=== PATIENT | male | born 1970 | race Caucasian/White ===

== ENCOUNTER 2017-07-13 18:51 | Emergency (ER) | payer MEDICAID, OTHER, SELFPAY ==
[2017-07-13 18:51] VITALS: BP 159/97; PULSE 82; RESP 16; TEMP 36.8; O2SAT 100; BMI 28.7
--- NOTE | 2017-07-13 19:23 | ED.VISSUMM ---
- ER Visit Summary Date of Service: 07/13/17 Chief Complaint: [] Bone spur History of Present Illness: The patient is a 46 M [] complaining of bone spur by his left great toe which became acutely inflamed today. He is requesting pain medication. He reports taking Tylenol at home without relief. No other complaints at this time. Denies any acute injury. Physical Examination: [] There is an obvious inflamed bony protuberance on the medial aspect of his right foot by his great toe which does not appear to be infected or reflecting any acute pathology. Remainder of exam is unremarkable. Test Results: [] None. Emergency Department Course and Treatment: [] Given 1 oxycodone tablet in the emergency department and a prescription for Naprosyn for home. He was encouraged to [facility]. Treatment Plan: [] Follow-up with primary care physician. Disposition: [] Discharge, stable. Impression: [] Foot pain This note was generated with [employer] dictation software. It may contain incorrect words, spelling, and punctuation that were not noted in review of the chart prior to signing ED Disposition - Plan for ED Patient: Chief Complaint: Lower Extremity Injury [facility] [[facility] Provider] -
--- NOTE | 2017-07-13 19:25 | ED.DEP ---
ED Disposition - Plan for ED Patient: Disposition: Home or Assisted Living Chief Complaint: Lower Extremity Injury Instructions: Foot Surgery: Bone Spurs Prescriptions: Naproxen 500 mg PO BID PRN PRN 10 Days #20 tab PRN Reason: Pain [facility] [[facility] Provider] -
[2017-07-13] MEDS: oxyCODONE 5 MG Tablet 10 MG PO (19:42)
[2017-07-13 19:43] VITALS: RESP 16
== END 2017-07-13 19:45 | disposition home or self-care (01) ==
PROVIDERS: Emergency Provider Emergency Medicine
DX: M77.32 Calcaneal spur, left foot (principal); F32.9 Major depressive disorder, single episode, unspecified; F41.9 Anxiety disorder, unspecified; K21.9 Gastro-esophageal reflux disease without esophagitis; Z72.0 Tobacco use
CPT/HCPCS: 99283

== ENCOUNTER 2018-06-30 14:26 | Emergency (ER) | payer MEDICAID, SELFPAY ==
[2018-06-30 14:27] VITALS: BP 155/95; PULSE 88; RESP 17; TEMP 36.7; O2SAT 97; BMI 29.5
--- NOTE | 2018-06-30 14:38 | RAD_ITS ---
STUDY: X-RAY - RIGHT ELBOW REASON FOR EXAM: Male, 47 years old. Fall onto elbow today, right elbow pain TECHNIQUE: 3 view(s) of the elbow. COMPARISON: None. FINDINGS: Normal visualized humerus, radius and ulna. Normal radiocapitellar and ulnotrochlear articulations. The soft tissue structures are unremarkable. RAD/Elbow min 3 Views IMPRESSION: Normal x-ray examination of the elbow. Electronically Signed: Sylvester Tee MD at 14:55 EST , Service support ,
--- NOTE | 2018-06-30 14:40 | ED.VISSUMM ---
- ER Visit Summary Date of Service: 06/30/18 Chief Complaint: Right elbow injury History of Present Illness: The patient is a 47 M cswq-dsnh-duhaatqj presents with isolated trauma to his left elbow from a mechanical fall 1 hour ago. He slipped on ice and landed directly on his right elbow. Denies any other injuries. He did not hit his head or lose consciousness. No back pain or any other complaints. Currently mild in severity Physical Examination: Mild tenderness on palpation right elbow posteriorly. Skin is intact. No swelling. No ecchymosis. No forearm or wrist tenderness. No shoulder tenderness. Normal distal neurovascular examination. No signs of head trauma. No cervical spine tenderness Test Results: Right elbow x-ray found to be negative Emergency Department Course and Treatment: Patient presented secondary to an elbow injury. X-rays are negative. Patient was recommended conservative treatment of this at home with liyt-fma-afkaeiz analgesics and ice. Disposition: Discharge Impression: 1. Right elbow contusion This note was generated with [employer] dictation software. It may contain incorrect words, spelling, and punctuation that were not noted in review of the chart prior to signing ED Disposition - Plan for ED Patient: Disposition: Home or Assisted Living Chief Complaint: Upper Extremity Injury Diagnosis: Contusion of right elbow Instructions: ED Contusion Elbow Referrals: [facility] [Primary Care Provider] -
[2018-06-30 15:36] VITALS: PULSE 79; RESP 14; O2SAT 98
--- OUTSIDE RECORDS SUMMARY | 2018-09-02 11:51 | XMS RPT_ITS ---
:1970 Author Organization [facility] Care Team Providers Name Role Phone [facility] [place] [facility] Unavailable Inderjit Fiore Attending [facility]available [facility] [place] [facility] Unavailable Ryan Cornell Attending Unavailable PROBLEMS PROBLEMS DATE TYPE CONDITION / CODE ATTENDING STATUS SOURCE 07/05/2018 Unknown S59.901A - Inderjit Fiore Active [facility] Unspecified Community injury of right Hospital elbow, initial Repository encounter / S59.901A(ICD-10) 07/13/2017 Unknown [place] - No Diagnosis Ryan Cornell Active [place] Code / [place](ICD-10) [facility] [place], [place] Repository PROCEDURES PROCEDURES No Procedure Records FoundRESULTS RESULTS EMERGENCY DEPARTMENT Observed: 06/30/2018 Status: F Source: [place] SUMMARY 4:16 PM [facility] REPOSITORY [facility] Medical Records Department [address] [place] [address] Emergency Department Summary 06/30/18 1440 MR#: [id number] Acct: [id number] Name: AMAN DELUCA Rep #: [id number] : 1970 47 From: Inderjit Fiore MD PCP: [facility], [place] Status: DEP ER - ER Visit Summary Date of Service: 06/30/18 Chief Complaint: Right elbow injury History of Present Illness: The patient is a 47 M epwo-qsat-rmwkwdly presents with isolated trauma to his left elbow from a mechanical fall 1 hour ago. He slipped on ice and landed directly on his right elbow. Denies any other injuries. He did not hit his head or lose consciousness. No back pain or any other complaints. Currently mild in severity Physical Examination: Mild tenderness on palpation right elbow posteriorly. Skin is intact. No swelling. No ecchymosis. No forearm or wrist tenderness. No shoulder tenderness. Normal distal neurovascular examination. No signs of head trauma. No cervical spine tenderness Test Results: Right elbow x-ray found to be negative Emergency Department Course and Treatment: Patient presented secondary to an elbow injury. X-rays are negative. Patient was recommended conservative treatment of this at home with xqeb-dew-yeaozee analgesics and ice. Disposition: Discharge Impression: 1. Right elbow contusion This note was generated with [employer] dictation software. It may contain incorrect words, spelling, and punctuation that were not noted in review of the chart prior to signing ED Disposition - Plan for ED Patient: Disposition: Home or Assisted Living Chief Complaint: Upper Extremity Injury Diagnosis: Contusion of right elbow Instructions: ED Contusion Elbow Referrals: [facility] [Primary Care Provider] - What to do if you have Problems For any increased pain, shortness of breath, bleeding, nausea or vomiting, chest pain, or any unexpected problems, contact your Primary Care Provider. Call [facility] ([phone]) or report to the closest Emergency Room. Call 911 if necessary. 06/30/18 1616 <Electronically signed by Inderjit Fiore MD> Date Inderjit Fiore MD Cosigner Signature (If Indicated): Date CC: [facility] ELBOW MIN 3 VIEWS Observed: 06/30/2018 Status: F Source: [place] 2:38 PM [facility] REPOSITORY [facility] Imaging Services [address] [place] [address] Elbow min 3 Views MR#: [id number] Acct: [id number] Name: AMAN DELUCA Rep #: [id number] : 1970 M 47 From: Sylvester Tee MD PCP: [place] [place] Status: PRE ER Study: Elbow min 3 Views Date of Exam: 06/30/18 Exam# [id number] Ordering Dr: Solis Wayne MD STUDY: X-RAY - RIGHT ELBOW REASON FOR EXAM: Male, 47 years old. Fall onto elbow today, right elbow pain TECHNIQUE: 3 view(s) of the elbow. COMPARISON: None. FINDINGS: Normal visualized humerus, radius and ulna. Normal radiocapitellar and ulnotrochlear articulations. The soft tissue structures are unremarkable. RAD/Elbow min 3 Views IMPRESSION: Normal x-ray examination of the elbow. Electronically Signed: Sylvester Tee MD at 14:55 EST , Service support , CC: [facility]; Mega Wayne MD [facility]: Signed EMERGENCY DEPARTMENT Observed: 07/13/2017 Status: F Source: [place] SUMMARY 10:35 PM [facility] REPOSITORY [facility] Medical Records Department [address] [place] [address] Emergency Department Summary 07/13/171922 MR#: [id number] Acct: [id number] Name: AMAN DELUCA Rep #: [id number] : 1970 46 From: Ryan Cornell DO PCP: [place] [place] Status: DEP ER - ER Visit Summary Date of Service: 07/13/17 Chief Complaint: [] Bone spur History of Present Illness: The patient is a 46 M [] complaining of bone spur by his left great toe which became acutely inflamed today. He is requesting pain medication. He reports taking Tylenol at home without relief. No other complaints at this time. Denies any acute injury. Physical Examination: [] There is an obvious inflamed bony protuberance on the medial aspect of his right foot by his great toe which does not appear to be infected or reflecting any acute pathology. Remainder of exam is unremarkable. Test Results: [] None. Emergency Department Course and Treatment: [] Given 1 oxycodone tablet in the emergency department and a prescription for Naprosyn for home. He was encouraged to follow-up with his [place] physician. Treatment Plan: [] Follow-up with primary care physician. Disposition: [] Discharge, stable. Impression: [] Foot pain This note was generated with [employer] dictation software. It may contain incorrect words, spelling, and punctuation that were not noted in review of the chart prior to signing ED Disposition - Plan for ED Patient: Chief Complaint: Lower Extremity Injury [facility]errals[place] [facility] [Primary Care Provider] - What to do if you have Problems For any increased pain, shortness of breath, bleeding, nausea or vomiting, chest pain, or any unexpected problems, contact your Primary Care Provider. Call [employer] [facility] ([phone]) or report to the closest Emergency Room. Call 911 if necessary. 07/13/172233 <Electronically signed by Ryan Cornell DO> Date Ryan Cornell DO Cosigner Signature (If Indicated): Date CC: [place] [facility] DISCHARGE INSTRUCTION Observed: 07/13/2017 Status: F Source: [place] 7:28 PM [facility] REPOSITORY [facility] Medical Records Department [address] [place] [address] Discharge Instruction 07/13/171924 MR#: [id number] Acct: [id number] Name: AMAN DELUCA Rep #: [id number] : 1970 46 From: Ryan Cornell DO PCP: [place] [place] Status: PRE ER ED Disposition - Plan for ED Patient: Disposition: Home or Assisted Living Chief Complaint: Lower Extremity Injury Instructions: Foot Surgery: Bone Spurs Prescriptions: Naproxen 500 mg PO BID PRN PRN 10 Days #20 tab PRN Reason: Pain Referrals: [facility] [Primary Care Provider] - What to do if you have Problems For any increased pain, shortness of breath, bleeding, nausea or vomiting, chest pain, or any unexpected problems, contact your Primary Care Provider. Call [facility] ([phone]) or report to the closest Emergency Room. Call 911 if necessary. 07/13/171927 <Electronically signed by Ryan Cornell DO> Date Ryan Cornell DO Cosigner Signature (If Indicated): Date CC: [place] [facility] ALLERGIES ALLERGIES DATE TYPE / CODE NAME / CODE REACTION SEVERITY SOURCE 06/30/2018 Drug Penicillins/ Swelling Unknown [facility] Allergy/399522409(S [id number](R [facility] NOMED CT) XNORM) Hospital Repository 06/30/2018 Drug meloxicam/F0 Itching Unknown [place] Allergy/702619065(S 71182940(RXN [facility] NOMED CT) ORM) Hospital Repository 06/30/2018 Drug latex/W06094 Other Unknown [place] Allergy/189747560(S 8921(RXNORM) Community NOMED CT) Hospital Repository 06/30/2018 Miscellaneous bee Other Unknown [place] Allergy/278550222(S [facility] NOMED CT) Hospital Repository 06/30/2018 Miscellaneous onion Other Unknown [place] Allergy/128281691(S [facility] NOMED CT) Hospital Repository 06/30/2018 Miscellaneous spider Hives Unknown [place] Allergy/447863449(S [facility] CT) Hospital Repository ENCOUNTERS ENCOUNTERS ADMIT/DISCHARGE ACCOUNT ADMITTING ENCOUNTER LOCATION SOURCE NUMBER CLASS 06/30/2018/ [id number] Emergency [place] [facility] ing:ED Repository 07/13/2017/ [id number] Emergency [place] [facility] ing:ED Repository PAYERS PAYERS ENCOUNTER GUARANTOR PAYER SUBSCRIBER SOURCE 06/30/2018 AMAN DELUCA428 Primary Insurance:[place] [facility] [place]ERLEYDOB: [place], [place] Number: [id number] [address]Okg: [phone] [id number] Repository [phone] (HP) Date:[id number] SERVICE [id number] [place], [place] [address]WV: [phone] x2003 06/30/2018 Secondary AMAN A [facility] [facility] [place] [id number] [id number] Repository Date:2018-06-30[address]ATTN[place] [address]RO: 06/30/2018 Tertiary NOT GIVENUNK [place] Insurance:SELF PAY [facility] Number: Effective Repository Date:2018-06-30 07/13/2017 Aman Joy [id number] Primary Aman A [place] Garcia [facility] Number: [id number] [address]Nhw: [phone] [id number] Repository [phone] (HP) Date:2017-07-13[address]ATTN: [place] [address]PB: 07/13/2017 Secondary Aman A [facility] Insurance:[facility] JonDOB: [facility] Number: [id number] [id number] Repository Date:6156-06-16RIO SERVICE [id number] [place], [place] [address]CE: [phone] x2003 07/13/2017 Tertiary NOT GIVENUNK [place] Insurance:SELF PAY [facility] Number: Effective Repository Date:2017-07-13
== END 2018-06-30 15:37 | disposition home or self-care (01) ==
PROVIDERS: Emergency Provider Emergency Medicine
DX: S50.01XA Contusion of right elbow, initial encounter (principal); W00.0XXA Fall on same level due to ice and snow, initial encounter; Y93.9 Activity, unspecified; Y92.9 Unspecified place or not applicable; F32.9 Major depressive disorder, single episode, unspecified; Z72.0 Tobacco use
CPT/HCPCS: 73080; 99282

== ENCOUNTER 2018-12-08 09:52 | Emergency (ER) | payer MEDICAID, SELFPAY ==
[2018-12-08 09:53] VITALS: BP 136/88; PULSE 91; RESP 16; TEMP 36.2; O2SAT 96; BMI 28.1
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
[2018-12-08] MEDS: HYDROcodone Bitartrate/Apap 5/325 Tablet PO (10:26)
--- NOTE | 2018-12-08 11:12 | ED.RN ---
DISCHARGE INSTRUCTIONS GIVEN TO AND REVIEWED WITH PATIENT, PATIENT DENIES QUESTIONS OR CONCERNS AND VOICES UNDERSTANDING OF DISCHARGE INSTRUCTIONS. PT AMBULATES OUT OF ROOM WITHOUT DIFFICULTY.
== END 2018-12-08 11:12 | disposition home or self-care (01) ==
LOC: ED 10:24
PROVIDERS: Emergency Provider Emergency Medicine
DX: S20.221A Contusion of right back wall of thorax, initial encounter (principal); W22.8XXA Striking against or struck by other objects, initial encounter; Y93.89 Activity, other specified; Y92.9 Unspecified place or not applicable; I10 Essential (primary) hypertension; Z79.899 Other long term (current) drug therapy; Z72.0 Tobacco use
CPT/HCPCS: 71101; 99283

== ENCOUNTER 2019-01-16 16:48 | Emergency (ER) | payer MEDICAID, OTHER, SELFPAY ==
[2019-01-16 16:49] VITALS: BP 149/96; PULSE 84; RESP 16; TEMP 36.3; O2SAT 97; BMI 28.1
--- NOTE | 2019-01-16 17:18 | RAD_ITS ---
STUDY: X-RAY - RIGHT WRIST REASON FOR EXAM: Male, 48 years old. Pain. Fall. TECHNIQUE: 3 view(s) of the wrist were obtained. COMPARISON: None. FINDINGS: Normal visualized distal radius and ulna. Normal radiocarpal articulation. Normal distal radioulnar articulation. Normal carpal bones. Normal carpal articulations. Normal carpometacarpal articulation of the thumb. Normal second through fifth carpometacarpal articulations. Normal visualized metacarpal bones. The soft tissue structures are unremarkable. There is no demonstrated acute fracture. RAD/Wrist min 3 Views IMPRESSION: Normal x-ray examination of the wrist. Electronically Signed: Gregory Thomas MD at 17:40 EDT , Service support ,
--- NOTE | 2019-01-16 17:18 | ED.VISSUMM ---
- ER Visit Summary Date of Service: 01/16/19 Chief Complaint: Fall with right elbow pressure laceration History of Present Illness: The patient is a 48 M physical was picking up scrap metal weeks. Fell backwards in the room. Injuring his right elbow and right wrist. He is left-hand dominant. Tetanus up-to-date within the last few months. He denies any injuries. Physical Examination: Well-appearing middle-aged male. No acute distress. Vital signs stable afebrile. HEENT exam unremarkable. Neck nontender. Lungs clear to auscultation bilaterally. Heart regular rate and rhythm no murmur. Chest were nontender. Abdomen soft nontender. Cervical, thoracic lumbar spine and back nontender. Patient moving all 4 extremities. Neurovascular intact. Left upper both lower extremities are unremarkable. He has a abrasion to his right elbow that does not separate nor need to be sewn. He also has some mild right elbow and right wrist tenderness. There is no deformity. He has discomfort but is able to do range of motion. 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 Normal radial pulse and sensation. Right hand is neurovascular intact. Neurologic exam normal. GCS 15. Test Results: Right wrist x-ray x3 shows no acute abnormality. Right elbow x-ray x3 shows no acute abnormality. Both films are read both by the radiologist and myself. Emergency Department Course and Treatment: Right elbow wound will be cleaned and dressed. Does not need laceration repair. Treatment Plan: Keep the wound clean. Watch for any signs of infection. Ice to his elbow and wrist. Motrin for pain and swelling. Disposition: dc Impression: Fall Superficial right elbow laceration no repair Right elbow contusion Right wrist sprain This note was generated with [employer] dictation software. It may contain incorrect words, spelling, and punctuation that were not noted in review of the chart prior to signing ED Disposition - Plan for ED Patient: [facility] [facility] [Primary Care Provider] -
--- NOTE | 2019-01-16 17:25 | RAD_ITS ---
STUDY: X-RAY - RIGHT ELBOW REASON FOR EXAM: Male, 48 years old. Pain. Fall. TECHNIQUE: 3 view(s) of the elbow. COMPARISON: June 30, 2018 FINDINGS: Normal visualized humerus, radius and ulna. Normal radiocapitellar and ulnotrochlear articulations. The soft tissue structures are unremarkable. There is no demonstrated fracture. RAD/Elbow min 3 Views IMPRESSION: Normal x-ray examination of the elbow. Electronically Signed: Gregory Thomas MD at 17:41 EDT , Service support ,
[2019-01-16] MEDS: Ibuprofen 600 MG Tablet PO (17:49)
--- NOTE | 2019-01-16 17:50 | ED.DEP ---
ED Disposition - Plan for ED Patient: Disposition: Home or Assisted Living Instructions: LACERATION, All, CONTUSION, Elbow, Wrist Sprain [facility]errals[place] [facility] [Primary Care Provider] - 1 Week if not improving Additional Instructions: Wound clean and watch for any signs of infection. Apply antibiotic ointment daily. Tylenol and/or Motrin for pain. Ice all sore areas particularly her elbow and wrist. This should particularly get better if not improving follow-up with your doctors.
== END 2019-01-16 18:00 | disposition home or self-care (01) ==
PROVIDERS: Emergency Provider Emergency Medicine
DX: S51.011A Laceration without foreign body of right elbow, initial encounter (principal); S50.01XA Contusion of right elbow, initial encounter; S63.501A Unspecified sprain of right wrist, initial encounter; W19.XXXA Unspecified fall, initial encounter; Y93.89 Activity, other specified; I10 Essential (primary) hypertension; F32.9 Major depressive disorder, single episode, unspecified; F41.9 Anxiety disorder, unspecified; F43.10 Post-traumatic stress disorder, unspecified; Z79.899 Other long term (current) drug therapy; Z72.0 Tobacco use
CPT/HCPCS: 73080; 73110; 99282

== ENCOUNTER 2019-07-12 11:52 | Emergency (ER) | payer MEDICAID, SELFPAY ==
[2019-07-12 11:53] VITALS: BP 170/95; PULSE 70; RESP 18; TEMP 36.3; O2SAT 99; BMI 29.2
--- NOTE | 2019-07-12 12:25 | EKG12_ITS ---
Test Reason : Blood Pressure : / mmHG Vent. Rate : 068 BPM Atrial Rate : 068 BPM P-R Int : 162 ms QRS Dur : 082 ms QT Int : 364 ms P-R-T Axes : 061 073 045 degrees QTc Int : 387 ms Normal sinus rhythm Normal ECG Confirmed by FABI SINGH, WADE ([id number]), image editor GILMA ROACH ([id number]) on 07/15/2019 8:25:00 AM Referred By: JODIE Confirmed By:WADE DUNLAP MD
--- NOTE | 2019-07-12 12:25 | RAD_ITS ---
STUDY: X-RAY CHEST REASON FOR EXAM: Male, 48 years old. Chest pain since this morning TECHNIQUE: Single AP portable view of the chest. COMPARISON: 01/03/2011. FINDINGS: The lungs are clear and expanded. There is no demonstrated pleural abnormality. Normal size heart. Normal mediastinum and ben. Normal visualized pulmonary arteries. Normal visualized aortic arch and descending thoracic aorta. Normal visualized thoracic spine. Normal visualized ribs, clavicles, and shoulders. There is no demonstrated abnormality of the visualized soft tissue structures of the upper abdomen. RAD/Chest 1 View (Portable) IMPRESSION: Normal x-ray examination of the chest. Electronically Signed: Mahesh Huffman MD at 13:06 EST Tel , Service support ,
--- NOTE | 2019-07-12 12:26 | ED.DCSUM_ITS ---
History of Present Illness Chief Complaint: Chest Pain Informant: Patient Onset: Today Maximum Severity: Mild Narrative: Patient reports he woke today with epigastric gastric burning discomfort similar to his reflux he is on ompyrazole, he has history of reflux,, symptoms seem to persist to a degree although he improved and he came in for evaluation he has no history of [place] PE DVT he has had similar symptoms like this in the past, his indicates is able to exert himself without any chest pain. He has a history of hypertension no diabetes he does smoke he is followed through the [facility] reports reflux diagnosed with EGD through the [facility] bowel bladder habits been normal no fever no cough he is resting comfortably sitting he is improved without therapy Past Medical History - Allergies and Home Meds Allergies/Adverse Reactions: Allergies latex Allergy (Verified 01/16/19 16:52) Other meloxicam Allergy (Verified 01/16/19 16:52) Itching Penicillins Allergy (Verified 01/16/19 16:52) Swelling bee Allergy (Uncoded 01/16/19 16:52) Other onion Allergy (Uncoded 01/16/19 16:52) Other spider Allergy (Uncoded 01/16/19 16:52) Hives Primary Care Physician[place] Care Provider] - Past Medical History: - Smoking Status: Current every day smoker Review of Systems ROS: - As above General: Denies: Chills, Fever, Sweats Eyes: Denies: Visual changes - bilaterally, Diplopia ENT: Denies: Rhinorrhea, Sore throat Cardiovascular: Reports: Chest pain. Denies: Palpitations Respiratory: Denies: Dyspnea, Cough, Dyspnea on exertion Gastrointestinal: Denies: Abdominal pain, Nausea, Vomiting, Diarrhea, Melena, Hematochezia Genitourinary: Denies: Dysuria, Hematuria, Frequency Musculoskeletal: Denies: Back pain, Extremity Pain Skin: Denies: Rash, Wounds Neurological: Denies: Headache, Weakness, Numbness Physical Exam Vital Signs/Narrative: Vital Signs Temp Pulse Resp BP Pulse Ox 07/12/19 11:53 97.4 F L 70 18 170/95 H 99 General: Well nourished, Well developed, No Acute Distress Head: Normocephalic, Atraumatic Eyes: Perrl, EOMI ENT: Moist mucous membranes, No rhinorrhea Neck: Supple, Nontender Cardiovascular: Regular rate, Regular rhythm, No murmurs Respiratory: No distress, CTA bilaterally, Chest nontender Abdomen: Soft, Nontender, Nondistended, Normal bowel sounds Back: Nontender, Normal Inspection Extremities: Nontender, No edema Skin: Normal color, No rash Neurological: Alert, Oriented x3, Cranial nerves II-XII grossly intact, Normal Strength, Normal Sensation Psychological: Normal affect, Normal Mood Diagnostic/Tx/Re-eval - Medical Decision Making The patient's differential is extensive he assures me he is had this type of pressure and discomfort and epigastric burning in the past he is never been told he has an [place] PE DVT he has reflux this is very similar to that but given all the above screening labs are obtained EKG Patient's EKG shows a sinus rhythm no acute injury pattern, intervals appear within normal range, his labs x-rays are all unremarkable on reevaluation is resting comfortably he feels back to baseline, we discussed the differential we discussed keeping him in the emergency department for repeat troponin EKG and to include admitting him to the hospital for further management he declined all the above saying he felt fine he wanted to go home he understand the differential and the concept of an acute [place] and sudden but he did not wish to be admitted preferring outpatient management he has appointment see his physicians early next week and return for change in symptoms Home stable declined admission Impression final is burning epigastric pain resolved history of GERD ED Disposition - Plan for ED Patient: Instructions: CHEST PAIN, Uncertain Cause [facility]errals[place] [facility] [Primary Care Provider] -
[2019-07-12 12:43] VITALS: O2SAT 96
[2019-07-12 12:44] LABS: Absolute Neutrophil Count 3.2 X10^3/uL (2.0-7.7); Basophil# 0.06 X10^3/uL; Basophil% 0.8 % (0-1); Eosinophils% 2.5 % (0-5); Hematocrit 43.8 % (40-54); Hemoglobin 15.3 g/dL (13.0-16.5); Lymphocyte % 49.6 % (19-41); Mean Corp Hgb Conc 34.9 g/dL (32-36); Mean Corpuscular Hgb 29.3 pg (27.0-32.0); Mean Corpuscular Volume 83.7 fL (80-94); Mean Platelet Vol. 8.8 fl (6.2-12.0); Monocyte# 0.49 X10^3/uL; Monocyte% 6.2 % (0-10); NRBC Flagged by Analyzer 0 % (0-5); Neutrophil # 3.18 X10^3/uL (2.7-7.7); Neutrophil % 40.5 % (47-70); Platelet Count 246 K/mm3 (150-450); RBC Distribution Width CV 13.1 % (11.6-14.6); RBC Distribution Width SD 40.2 fl (35.1-43.9); Red Blood Count 5.23 M/mm3 (4.6-6.2); White Blood Count 7.9 K/mm3 (4.4-11.0)
[2019-07-12] MEDS: Mag Hydrox/Al Hydrox/Simeth 30 ML UDC PO (12:55)
[2019-07-12 12:56] VITALS: BP 140/99; PULSE 66; RESP 18; O2SAT 98
[2019-07-12 12:58] LABS: Anion Gap 5 (5-15); BUN 11 mg/dL (7-18); BUN/Creat Ratio 12.1 RATIO (10-20); Calcium,Total 8.9 mg/dL (8.5-10.1); Chloride 110 mmol/L (98-107); Creatinine, Serum 0.91 mg/dL (0.70-1.30); EST Glomerular Filtration Rate 94 mL/min (>60); Est Glom Filt Rate - Afr Amer 114 mL/min (>60); Estimated Creatinine Clearance 91.81 ml/min; Glucose 101 mg/dL (74-106); Potassium 3.9 mmol/L (3.5-5.1); Sodium Level 138 mmol/L (136-145)
--- NOTE | 2019-07-12 12:59 | ED.RN ---
pt did not tolerate lidocaine in GI cocktail. Water given to help flush lidocaine.
[2019-07-12 13:24] LABS: BNP,B-Type NATRIURETIC PEPTIDE 4.9 pg/mL (0-100)
[2019-07-12 14:00] VITALS: BP 160/91; PULSE 67; RESP 16; O2SAT 98
[2019-07-12 14:16] VITALS: BP 160/91; PULSE 66; RESP 16; O2SAT 99
== END 2019-07-12 14:17 | disposition home or self-care (01) ==
LOC: ED 12:49
PROVIDERS: Emergency Provider Emergency Medicine
DX: R10.13 Epigastric pain (principal); K21.9 Gastro-esophageal reflux disease without esophagitis; I10 Essential (primary) hypertension; F17.200 Nicotine dependence, unspecified, uncomplicated
CPT/HCPCS: 71045; 80048; 83880; 84484; 85025; 93005; 99285; A4216

== ENCOUNTER 2020-02-29 12:06 | Emergency (ER) | payer MEDICAID, SELFPAY ==
[2020-02-29 12:08] VITALS: BP 137/94; PULSE 82; RESP 16; TEMP 36.5; O2SAT 99; BMI 26.6
--- NOTE | 2020-02-29 12:22 | ED.VIS.GEN ---
History of Present Illness <Inderjit Atkins - Last Filed: 02/29/20 12:41> Informant: Patient Narrative: Patient presents with dental pain. He has his right lower back molar extracted on 02/25. He woke up today with increased pain and facial swelling. Denies fevers, chills, nausea, vomiting, difficulty breathing or swallowing. <Telma Carranza - Last Filed: 02/29/20 13:11> Chief Complaint: Dental Past Medical History <Inderjit Atkins - Last Filed: 02/29/20 12:41> Past Medical History: - - PTSD Smoking Status: Current every day smoker <Telma Carranza - Last Filed: 02/29/20 13:11> - Allergies and Home Meds Allergies/Adverse Reactions: Allergies latex Allergy (Verified 02/29/20 12:07) Other meloxicam Allergy (Verified 02/29/20 12:07) Itching Penicillins Allergy (Verified 02/29/20 12:07) Swelling bee Allergy (Uncoded 02/29/20 12:07) Other onion Allergy (Uncoded 02/29/20 12:07) Other spider Allergy (Uncoded 02/29/20 12:07) Hives Primary Care Physician: [place] [Primary Care [place]] - Review of Systems General: Denies: Chills, Fever, Sweats Eyes: Denies: Visual changes - bilaterally, Diplopia ENT: Reports: - - dental pain. Denies: Rhinorrhea, Sore throat Cardiovascular: Denies: Chest pain, Palpitations Respiratory: Denies: Dyspnea, Cough, Dyspnea on exertion Gastrointestinal: Denies: Abdominal pain, Nausea, Vomiting, Diarrhea, Melena, Hematochezia Musculoskeletal: Denies: Back pain, Extremity Pain Skin: Denies: Rash, Wounds Neurological: Denies: Headache, Weakness, Numbness <Telma Carranza - Last Filed: 02/29/20 13:11> Physical Exam Vital Signs/Narrative: Vital Signs Temp Pulse Resp BP Pulse Ox 02/29/20 12:08 97.7 F L 82 16 137/94 H 99 <Inderjit Atkins - Last Filed: 02/29/20 12:41> Vital Signs/Narrative: Vital Signs Temp Pulse Resp BP Pulse Ox 02/29/20 12:08 97.7 F L 82 16 137/94 H 99 General: Well nourished, Well developed, No Acute Distress Head: Normocephalic, Atraumatic Eyes: Perrl, EOMI ENT: Moist mucous membranes, - - Skin appears normal, no swelling, tender over area of tooth extraction, no other dental injury or loose dentition, no palpable abscess, no trismus or tongue elevation, sublingual space is soft, airway intact, neck has good range of motion. Neck: Supple, Nontender Cardiovascular: Regular rate, Regular rhythm, No murmurs Respiratory: No distress, CTA bilaterally, Chest nontender Abdomen: Soft, Nontender, Nondistended, Normal bowel sounds Back: Nontender, Normal Inspection Extremities: Nontender, No edema Skin: Normal color, No rash Neurological: Alert, Oriented x3, Cranial nerves II-XII grossly intact, Normal Strength, Normal Sensation Psychological: Normal affect, Normal Mood <Telma Carranza - Last Filed: 02/29/20 13:11> Diagnostic/Tx/Re-eval - Medical Decision Making Patient was seen in conjunction with the nurse practitioner. It does appear as if he has dry socket. It was irrigated and dry socket paste was used. There is no evidence of Adalberto angina or pain in the submental area. Patient will be discharged. <Inderjit Atkins - Last Filed: 02/29/20 12:41> - Medical Decision Making Presented with increased dental pain after dental extraction several days ago. Exam consistent with dry socket. No palpable abscess. The area was cleared with sterile saline and dry socket paste applied. He will be given amoxicillin and was advised to follow up with his dentist. He states he will take ibuprofen at home for pain. He was discharged home in stable condition. <Telma Carranza - Last Filed: 02/29/20 13:11> ED Disposition <Inderjit Atkins - Last Filed: 02/29/20 12:41> <Telma Carranza - Last Filed: 02/29/20 13:11> - Plan for ED Patient: Disposition: Home or Assisted Living Diagnosis: Dry tooth socket Prescriptions: Clindamycin [Cleocin] 300 mg PO 4X/DAY #80 cap Transmission Status: Received by [facility]errals[facility] [Primary Care Provider] -
[2020-02-29] MEDS: HYDROcodone Bitartrate/Apap 5/325 Tablet PO (12:45)
== END 2020-02-29 12:48 | disposition home or self-care (01) ==
PROVIDERS: Emergency Provider Physician Assistant
DX: M27.3 Alveolitis of jaws (principal); F17.200 Nicotine dependence, unspecified, uncomplicated
CPT/HCPCS: 99283

== ENCOUNTER 2020-07-12 08:08 | Emergency (ER) | payer OTHER, MEDICAID, SELFPAY ==
[2020-07-12 08:08] VITALS: BP 159/91; PULSE 103; RESP 22; TEMP 36.6; O2SAT 98; BMI 27.3
--- NOTE | 2020-07-12 08:26 | EKG12_ITS ---
Test Reason : SOB Blood Pressure : / mmHG Vent. Rate : 080 BPM Atrial Rate : 080 BPM P-R Int : 164 ms QRS Dur : 080 ms QT Int : 328 ms P-R-T Axes : 061 077 043 degrees QTc Int : 378 ms Normal sinus rhythm with sinus arrhythmia Normal ECG Confirmed by CYRIL SINGH, ALICJA ([id number]), field map editor ELIA MORA ([id number]) on 07/21/2020 9:02:22 AM Referred By: STARLA Confirmed By:ALICJA NAM MD
--- NOTE | 2020-07-12 08:27 | ED.VISSUMM ---
- ER Visit Summary Date of Service: 07/12/20 Chief Complaint: Shortness of breath History of Present Illness: The patient is a 49 M presenting with shortness of breath. 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 He denies chest pain or chest pressure. He used his inhaler and started to have improvement of his symptoms. He denies recent fever or cough. He states he has his temperature checked daily. Denies Covid symptoms. He states he is now feeling improved after using his inhaler. Denies other complaints. Physical Examination: Vitals are stable. Patient is afebrile. Alert no acute distress. HEENT exam is unremarkable. Neck is supple. Lungs are clear and equal bilaterally. Heart is regular rate and rhythm. Abdomen is soft nontender nondistended. Extremities are unremarkable. Skin is warm and dry. Remainder of exam is unremarkable. Emergency Department Course and Treatment: Patient was given albuterol, Atrovent aerosol. EKG is normal sinus rhythm rate of 80 with no acute ischemic changes. CBC, chemistries unremarkable. Troponin is negative. Chest x-ray read by myself and radiology shows no acute process. On reevaluation after breathing treatment patient is feeling improved. He states he had no chest pain during this episode. He declines delta troponin. He is advised to return to the ED for worsening complaints. Advised to follow-up with primary care physician. Disposition: Discharge home Impression: Dyspnea, resolved This note was generated with [employer] dictation software. It may contain incorrect words, spelling, and punctuation that were not noted in review of the chart prior to signing ED Disposition - Plan for ED Patient: Instructions: ED Asthma, Acute (Adult) Referrals: [facility],[place] [Primary Care Provider] -
[2020-07-12 08:40] LABS: Absolute Neutrophil Count 4.7 X10^3/uL (2.0-7.7); Basophil# 0.03 X10^3/uL; Basophil% 0.4 % (0-1); Eosinophil# 0.11 X10^3/uL; Eosinophils% 1.4 % (0-5); Hemoglobin 14.7 g/dL (13.0-16.5); Lymphocyte % 31.8 % (19-41); Mean Corpuscular Hgb 29.9 pg (27.0-32.0); Mean Corpuscular Volume 85.4 fL (80-94); Mean Platelet Vol. 8.7 fl (6.2-12.0); Monocyte# 0.51 X10^3/uL; Monocyte% 6.5 % (0-10); NRBC Flagged by Analyzer 0 % (0-5); Neutrophil % 59.6 % (47-70); Platelet Count 231 K/mm3 (150-450); RBC Distribution Width SD 40.3 fl (35.1-43.9); Red Blood Count 4.92 M/mm3 (4.6-6.2); White Blood Count 7.9 K/mm3 (4.4-11.0)
[2020-07-12] MEDS: Ipratropium/Albuterol Sulfate 3 ML AMPUL.NEB INHALATION (08:41)
[2020-07-12 08:42] VITALS: PULSE 83; RESP 18
--- NOTE | 2020-07-12 08:45 | RAD_ITS ---
STUDY: X-RAY CHEST REASON FOR EXAM: Male, 49 years old. 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 HX OF ASTHMA TECHNIQUE: Single AP portable view of the chest. COMPARISON: Comparison is made with prior study dated 07/12/2019. FINDINGS: EKG electrodes are seen. The lungs are clear and expanded. There is no demonstrated pleural abnormality. Normal size heart. Normal mediastinum and ben. Normal visualized pulmonary arteries. Normal visualized aortic arch and descending thoracic aorta. Normal visualized thoracic spine. Normal visualized ribs, clavicles, and shoulders. There is no demonstrated abnormality of the visualized soft tissue structures of the upper abdomen. RAD/Chest 1 View (Portable) IMPRESSION: Normal x-ray examination of the chest. Electronically Signed: Yaakov Pal MD at 9:01 EST , Service support ,
[2020-07-12 08:58] LABS: Anion Gap 7 (5-15); BUN 19 mg/dL (7-18); BUN/Creat Ratio 19.2 RATIO (10-20); Calcium,Total 8.9 mg/dL (8.5-10.1); Chloride 106 mmol/L (98-107); Creatinine, Serum 0.99 mg/dL (0.70-1.30); EST Glomerular Filtration Rate 85 mL/min (>60); Est Glom Filt Rate - Afr Amer 103 mL/min (>60); Estimated Creatinine Clearance 86.36 ml/min; Glucose 109 mg/dL (74-106); Potassium 3.9 mmol/L (3.5-5.1); Sodium Level 137 mmol/L (136-145)
[2020-07-12 09:23] VITALS: BP 148/90; PULSE 80; RESP 18; O2SAT 96
--- NOTE | 2020-07-12 09:24 | ED.DEP ---
ED Disposition - Plan for ED Patient: Instructions: ED Asthma, Acute (Adult) [facility]errals[place] [facility] [Primary Care [place]] -
== END 2020-07-12 09:33 | disposition home or self-care (01) ==
LOC: ED 09:17
PROVIDERS: Emergency Provider Emergency Medicine
DX: R06.00 Dyspnea, unspecified (principal); F17.200 Nicotine dependence, unspecified, uncomplicated; K21.9 Gastro-esophageal reflux disease without esophagitis
CPT/HCPCS: 71045; 80048; 84484; 85025; 93005; 94640; 99285

== ENCOUNTER 2020-07-29 08:21 | Emergency (ER) | payer OTHER, MEDICAID, SELFPAY ==
[2020-07-29 08:21] VITALS: BP 164/95; PULSE 89; RESP 16; TEMP 36.6; O2SAT 98; BMI 27.4
--- NOTE | 2020-07-29 08:37 | CT_ITS ---
STUDY: CT ABDOMEN AND PELVIS WITH CONTRAST REASON FOR EXAM: Male, 49 years old. ABD PAINX 4 DAYS, HX HERNIA RADIATION DOSAGE (If Supplied By Facility): CTDIvol = ( 8.17 ) mGy, DLP = ( 683.76 ) mGycm TECHNIQUE: Transaxial images were obtained from the dome of the diaphragm to the symphysis pubis with oral contrast. Oral and amp; IV Gastrografin and amp; 100mL Isovue-300 was administered. Sagittal and coronal images were reconstructed. Individualized dose optimization techniques were used for this CT. COMPARISON: Comparison is made with prior study dated 08/16/2016. FINDINGS: The visualized lung bases are unremarkable. The visualized portions of the heart are within normal limits. Normal liver. There are surgical clips in the gallbladder fossa consistent with a prior cholecystectomy. Normal spleen. Normal pancreas. There is a small, circumscribed, smooth, low attenuation left adrenal mass, consistent with an adrenal adenoma. It measures 1.6 cm. Normal right adrenal gland. Normal right kidney. Normal left kidney. There is a small hiatal hernia. Normal small intestine. There are scattered colonic diverticula consistent with diverticulosis. The appendix is visualized and appears normal. There is scattered atherosclerotic calcification of the abdominal aorta, without a demonstrated aneurysm. Normal inferior vena cava. Normal retroperitoneum. Distended urinary bladder. There is enlargement of the prostate gland. It causes indentation at the bladder base. There is a small umbilical hernia containing fat. There are mild degenerative changes of the visualized lumbar spine. CT/Abdomen/Pelvis WITH Contrast IMPRESSION: Distended urinary bladder. Prostatic enlargement with indentation at the bladder base. Scattered sigmoid diverticulosis. Electronically Signed: Yaakov Pal MD at 11:03 EST , Service support ,
--- NOTE | 2020-07-29 08:38 | ED.DCSUM_ITS ---
- ER Visit Summary Date of Service: 07/29/20 Chief Complaint: Abdominal pain History of Present Illness: The patient is a 49 M who presents with abdominal pain that has been getting worse over the past 4 days. Patient states the pain is over the upper abdomen in the area of his prior hernia. Patient states the pain is sharp. Patient states the pain is been constant. Patient states the pain is worse with certain movements. Patient states the pain is better when he lays flat. Patient denies any nausea or vomiting. Patient denies any diarrhea, melena, or hematochezia. Patient denies any dysuria or hematuria. Patient denies any fevers or chills. Patient denies any radiation to his back. Physical Examination: Vital signs are stable except for a slightly elevated blood pressure of 164/95. Patient is afebrile. Patient is in no acute distress. Oral mucosa is pink and moist. Neck is supple. Trachea is midline. There is no JVD. Heart was regular rate and rhythm. Lungs are clear and equal bilaterally. Abdomen is soft. Bowel sounds are normal. There is tenderness over the upper abdomen. There is no rebound or guarding. I did not palpate a hernia or fascial defect. There is no erythema or warmth. Cranial nerves II through XII are intact. There are no focal motor or sensory deficits. Extremities are intact. There is no calf tenderness or edema. Test Results: CBC and comprehensive metabolic profile were obtained and were within normal limits. Lipase was normal. CT scan of the abdomen pelvis was obtained. There is a distended bladder and prostate enlargement. There is scattered diverticulosis. There is no acute intra-abdominal pathology. There is no obstruction. This was interpreted by the radiologist and reviewed by myself. Emergency Department Course and Treatment: Patient was given IV fluids and morphine here. Patient became nauseated after getting the morphine. Patient was given Zofran and Benadryl. Patient was still having some nausea. Patient has not vomited. Patient was given prescriptions for Zofran and Broadway. Patient was instructed to follow-up with his primary care physician in 5 to 7 days. Patient understood and was agreeable with the plan. All questions were answered. Disposition: Discharge home Impression: 1. Abdominal pain This note was generated with [employer] dictation software. It may contain incorrect words, spelling, and punctuation that were not noted in review of the chart prior to signing ED Disposition - Plan for ED Patient: Disposition: Home or Assisted Living Diagnosis: Upper abdominal pain of unknown etiology Instructions: ED Unknown Causes of Abdominal ... Prescriptions: Hydrocodone Bitart/Apap 5-325 [Broadway 5MG-325MG] 1 tab PO Q6H PRN PRN 3 Days #10 tab PRN Reason: Pain Prescription Printed Ondansetron [Zofran Odt] 4 mg PO Q8H PRN PRN #10 tab PRN Reason: Nausea Prescription Printed [facility]errals[facility] [Primary [facility]] - 3-5 Days
[2020-07-29] MEDS: 0.9% Normal Saline 1,000 ML 1000 ML IV (08:48)
[2020-07-29 08:53] LABS: Absolute Lymphocyte Count 2.46 X10^3/uL (0.83-4.51); Absolute Neutrophil Count 2.7 X10^3/uL (2.0-7.7); Basophil# 0.02 X10^3/uL; Basophil% 0.4 % (0-1); Eosinophil# 0.12 X10^3/uL; Eosinophils% 2.1 % (0-5); Hematocrit 43.2 % (40-54); Lymphocyte # 2.46 X10^3/ul (4.0); Lymphocyte % 43.2 % (19-41); Mean Corp Hgb Conc 34.7 g/dL (32-36); Mean Corpuscular Hgb 29.3 pg (27.0-32.0); Mean Corpuscular Volume 84.4 fL (80-94); Mean Platelet Vol. 8.6 fl (6.2-12.0); Monocyte# 0.33 X10^3/uL; Monocyte% 5.8 % (0-10); NRBC Flagged by Analyzer 0 % (0-5); Neutrophil # 2.74 X10^3/uL (2.7-7.7); Neutrophil % 48.1 % (47-70); Platelet Count 245 K/mm3 (150-450); RBC Distribution Width CV 13.2 % (11.6-14.6); RBC Distribution Width SD 40.6 fl (35.1-43.9); Red Blood Count 5.12 M/mm3 (4.6-6.2); White Blood Count 5.7 K/mm3 (4.4-11.0)
[2020-07-29 09:10] LABS: ALB/GLOB Ratio 1.1 RATIO (0.9-2.4); AST(SGOT) 19 U/L (15-37); Alanine Aminotransfer ALT/SGPT 26 U/L (16-61); Albumin, Serum 3.7 g/dL (3.2-5.0); Alkaline Phosphatase 83 U/L (45-117); Anion Gap 5 (5-15); BUN 12 mg/dL (7-18); BUN/Creat Ratio 12.3 RATIO (10-20); Calcium,Total 8.8 mg/dL (8.5-10.1); Chloride 105 mmol/L (98-107); Creatinine, Serum 0.97 mg/dL (0.70-1.30); EST Glomerular Filtration Rate 86 mL/min (>60); Est Glom Filt Rate - Afr Amer 105 mL/min (>60); Estimated Creatinine Clearance 82.22 ml/min; Globulin 3.5 g/dL (2.2-4.2); Glucose 116 mg/dL (74-106); Lipase 77 U/L (73-393); Protein, Total 7.2 g/dL (6.4-8.2); Sodium Level 136 mmol/L (136-145)
[2020-07-29] MEDS: Morphine 4 MG/ML Syringe IV (09:46)
[2020-07-29 10:21] VITALS: PULSE 86; RESP 22; O2SAT 100
[2020-07-29] MEDS: Ondansetron 4 MG/2 ML Vial IV (10:22)
[2020-07-29] MEDS: DiphenhydrAMINE 50 MG/ML Syringe 25 MG IV (10:29)
[2020-07-29 11:27] VITALS: BP 149/86; PULSE 88; RESP 18; O2SAT 100
== END 2020-07-29 11:29 | disposition home or self-care (01) ==
PROVIDERS: Emergency Provider Emergency Medicine
DX: R10.10 Upper abdominal pain, unspecified (principal); F17.200 Nicotine dependence, unspecified, uncomplicated; K21.9 Gastro-esophageal reflux disease without esophagitis
CPT/HCPCS: 74177; 80053; 83690; 85025; 96374; 96375; 99283; J7030; Q9967; A4216; J2405

== ENCOUNTER 2020-08-26 09:48 | Emergency (ER) | payer OTHER, MEDICAID, SELFPAY ==
[2020-08-26 09:49] VITALS: BP 159/107; PULSE 82; RESP 16; TEMP 36.2; O2SAT 96; BMI 28.1
--- NOTE | 2020-08-26 10:07 | ED.VIS.GEN ---
History of Present Illness Chief Complaint: Abd Pain Informant: Patient Narrative: 50-year-old male presenting with abdominal hernia which is reducible. This is a chronic issue. Patient states that he was seen by his physician at the [place] and referred to either a GI doctor or a surgeon. He states he does not know which. Patient states that he is having pain where his hernia is located. He does not have nausea, vomiting, fever, chills. He does not have constipation or diarrhea. Past Medical History - Allergies and Home Meds Allergies/Adverse Reactions: Allergies latex Allergy (Verified 08/26/20 09:49) Other meloxicam Allergy (Verified 08/26/20 09:49) Itching Penicillins Allergy (Verified 08/26/20 09:49) Swelling morphine Adverse Reaction (Verified 08/26/20 09:49) Vomiting bee Allergy (Uncoded 08/26/20 09:49) Other onion Allergy (Uncoded 08/26/20 09:49) Other spider Allergy (Uncoded 08/26/20 09:49) Zeina Primary Care Physician: [facility],[place] [Primary Care Provider] - Prior records reviewed: Yes Past Medical History: - - GERD, depression Surgical History: - - Ventral hernia repair Lives: Alone Smoking Status: Current every day smoker Alcohol: None Drugs: None Review of Systems General: Denies: Chills, Fever, Sweats Eyes: Denies: Visual changes - bilaterally, Diplopia ENT: Denies: Rhinorrhea, Sore throat Cardiovascular: Denies: Chest pain, Palpitations Respiratory: Denies: Dyspnea, Cough, Dyspnea on exertion Gastrointestinal: Reports: Abdominal pain. Denies: Nausea, Vomiting, Diarrhea, Constipation Genitourinary: Denies: Dysuria, Hematuria, Frequency Musculoskeletal: Denies: Back pain, Extremity Pain Skin: Denies: Rash, Wounds Neurological: Denies: Headache, Weakness, Numbness Psych: Denies: Depression, Anxiety, Suicidal thoughts, Suicidal ideations, -, - Physical Exam Vital Signs/Narrative: Vital Signs Temp Pulse Resp BP Pulse Ox 08/26/20 09:49 97.2 F L 82 16 159/107 H 96 Inital Vital Signs reviewed: Yes General: Well nourished, No Acute Distress Head: Normocephalic, Atraumatic Eyes: Perrl, EOMI. Negative for: Scleral icterus ENT: Moist mucous membranes, No rhinorrhea Cardiovascular: Regular rate, Regular rhythm Respiratory: No distress, CTA bilaterally Abdomen: Soft, Nondistended, Tender - Tender around reducible hernia and ventral wall anteriorly. Back: CVA tenderness Extremities: Nontender, No edema Skin: Normal color, No rash Neurological: Alert, Oriented x3, Cranial nerves II-XII grossly intact Psychological: Normal affect, Normal Mood Diagnostic/Tx/Re-eval - Medical Decision Making 50-year-old male presenting with chronic reducible ventral hernia. He already has obtained follow-up for this. He is already had CT imaging and blood work recently. His vital signs are stable and he is afebrile. I do not believe the patient needs a full work-up again. I will give him an abdominal binder from the emergency room. Patient did request narcotic pain medication however this appears to be a chronic issue has not feel comfortable prescribing narcotics. Patient was counseled on this. He will use ice and NSAIDs at home. He will follow-up with his outpatient physician. Impression: 1. Ventral abdominal hernia ED Disposition - Plan for ED Patient: Disposition: Home or Assisted Living Instructions: ED Hernia (Adult) [facility] [Primary Care [place]] -
[2020-08-26 11:04] VITALS: BP 138/95; PULSE 77
[2020-08-26] MEDS: oxyCODONE 5 MG Tablet PO (11:12)
== END 2020-08-26 11:13 | disposition home or self-care (01) ==
PROVIDERS: Emergency Provider Student in an Organized Health Care Education/Training Program
DX: K43.9 Ventral hernia without obstruction or gangrene (principal); F17.200 Nicotine dependence, unspecified, uncomplicated
CPT/HCPCS: 99282

== ENCOUNTER 2021-09-16 16:10 | Outpatient (CLI) | payer MEDICAID, SELFPAY ==
--- NOTE | 2021-09-16 16:14 | RAD_ITS ---
STUDY: X-RAY CHEST REASON FOR EXAM: Male, 51 years old. PRE-OP EVALUATION TECHNIQUE: XR Chest 2 Views COMPARISON: Prior comparison studies are not available for review at this time. FINDINGS: There is no demonstrated pleural abnormality. Normal size heart. Normal mediastinum and ben. Normal visualized pulmonary arteries. Normal visualized aortic arch and descending thoracic aorta. There are diffuse degenerative changes of the visualized thoracic spine. Normal visualized ribs, clavicles, and shoulders. There is no demonstrated abnormality of the visualized soft tissue structures of the upper abdomen. RAD/Chest PA and Lateral IMPRESSION: There are no acute findings. Electronically Signed: Kenneth Moon MD at 8:54 EDT ,
[2021-09-16 17:25] LABS: Absolute Lymphocyte Count 4.12 X10^3/uL (0.83-4.51); Absolute Neutrophil Count 2.4 X10^3/uL (2.0-7.7); Basophil# 0.05 X10^3/uL; Basophil% 0.7 % (0-1); Eosinophils% 2.7 % (0-5); Hematocrit 44.3 % (40-54); Lymphocyte # 4.12 X10^3/ul (0.83-4.51); Lymphocyte % 54.9 % (19-41); Mean Corp Hgb Conc 33.9 g/dL (32-36); Mean Corpuscular Hgb 29.4 pg (27.0-32.0); Mean Corpuscular Volume 86.7 fL (80-94); Mean Platelet Vol. 8.8 fl (6.2-12.0); Monocyte# 0.68 X10^3/uL; Monocyte% 9.1 % (0-10); NRBC Flagged by Analyzer 0 % (0-5); Neutrophil # 2.43 X10^3/uL (2.7-7.7); Neutrophil % 32.2 % (47-70); Platelet Count 254 K/mm3 (150-450); RBC Distribution Width CV 13.2 % (11.6-14.6); RBC Distribution Width SD 41.5 fl (35.1-43.9); Red Blood Count 5.11 M/mm3 (4.6-6.2); White Blood Count 7.5 K/mm3 (4.4-11.0)
[2021-09-16 17:48] LABS: ALB/GLOB Ratio 1.2 RATIO (0.9-2.4); AST(SGOT) 21 U/L (15-37); Alanine Aminotransfer ALT/SGPT 27 U/L (16-61); Alkaline Phosphatase 85 U/L (45-117); Anion Gap 2 (5-15); BUN 12 mg/dL (7-18); Calcium,Total 8.7 mg/dL (8.5-10.1); Chloride 105 mmol/L (98-107); EST Glomerular Filtration Rate 84 mL/min (>60); Est Glom Filt Rate - Afr Amer 101 mL/min (>60); Globulin 3.4 g/dL (2.2-4.2); Glucose 94 mg/dL (74-106); Potassium 4.2 mmol/L (3.5-5.1); Protein, Total 7.4 g/dL (6.4-8.2); Sodium Level 136 mmol/L (136-145)
== END 2021-09-16 23:59 | disposition home or self-care (01) ==
PROVIDERS: Referring Provider Family Medicine; Visit Provider Family Medicine
DX: Z01.818 Encounter for other preprocedural examination (principal)
CPT/HCPCS: 36415; 71046; 80053; 85025

== ENCOUNTER 2022-02-21 14:04 | Emergency (ER) | payer OTHER, MEDICAID, SELFPAY ==
[2022-02-21 14:05] VITALS: BP 139/79; PULSE 74; RESP 18; TEMP 36.2; O2SAT 98; BMI 28.1
--- NOTE | 2022-02-21 14:14 | RAD_ITS ---
STUDY: X-RAY - LEFT FOOT CLINICAL: Male, 51 years old. Injury -- distal great toe, 5 months post op TECHNIQUE: 3 view(s) of the foot. COMPARISON: None. FINDINGS: There is an enthesophyte involving the posterior superior calcaneus at the site of insertion of the Achilles tendon. Normal visualized subtalar, talonavicular, calcaneocuboid, tarsal and tarsometatarsal articulations. The patient is status post bunionectomy. There is evidence of a surgical fusion at the base of the first metatarsal and first cuneiform bone. Normal metatarsophalangeal joint of the great toe. Normal tibial and fibular sesamoid bones. Normal interphalangeal joint of the great toe. Normal phalanges of the great toe. Normal second through fifth metatarsophalangeal joints. Normal interphalangeal joints and phalanges of the lesser toes. Soft tissue swelling overlying the great toe. RAD/Foot min 3 Views IMPRESSION: Postoperative changes at the first metatarsophalangeal joint as well as fusion of the first cuneiform and base of the first metatarsal. Soft tissue swelling. Electronically Signed: Yaakov Pal MD at 14:42 EDT ,
--- NOTE | 2022-02-21 14:15 | ED.VIS.LOWEX ---
HPI History of Present Illness Chief Complaint: Lower Extremity Injury Informant: patient Narrative Narrative: Presents work-related injury 50 minutes prior to arrival. 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 He skidded on his elbow. No head injuries. He is 5 months postop osteotomy due to hallux valgus by Dr. Cortez. He had plates and screws. He states he injured it 2 months later had a fracture with nonsurgical intervention of the metatarsal. He is healed fine with this. No injury today prior to arrival. Allergies to meloxicam however tolerate ibuprofen. No medications taken prior to arrival. No paresthesias. Prior similar symptoms: Yes PFSH PFSH Medical History no medical history Home Medications amitriptyline 10 mg tablet 20 mg PO QHS 10/02/15 [History Last Taken Unknown] mometasone 220 mcg/actuation(14 doses) breath activated powder inhaler (Asmanex Twisthaler) 220 mcg IH QHS PRN Sob &/Or Wheezing 10/02/15 [History Last Taken Unknown] omeprazole 20 mg capsule,delayed release 20 mg PO BID 10/02/15 [History Last Taken Unknown] prazosin 2 mg capsule (Minipress) 4 mg PO QHS 10/02/15 [History Last Taken Unknown] sertraline 100 mg tablet 100 mg PO DAILY 10/02/15 [History Last Taken Unknown] hydrocodone-acetaminophen 5-325mg 5mg-325mg 1 - 2 tab PO Q4H PRN PRN Pain ##12 08/16/16 [Rx Last Taken Unknown] ondansetron 4 mg disintegrating tablet 4 mg PO Q8H PRN PRN Nausea ##10 10/26/16 [Rx Last Taken Unknown] naproxen 500 mg tablet 500 mg PO BID PRN PRN Pain 10 days #20 tabs 07/13/17 [Rx Last Taken Unknown] ondansetron 4 mg disintegrating tablet 4 mg PO Q8H PRN PRN Nausea #10 tabs 07/29/20 [Rx Last Taken Unknown] Allergy/AdvReac Type Severity Reaction Status Date / Time bee venom protein (honey bee) Allergy NEEDS Verified 02/21/22 14:06 FOLLOW-UP latex Allergy Other Verified 02/21/22 14:06 meloxicam Allergy Itching Verified 02/21/22 14:06 onion Allergy NEEDS Verified 02/21/22 14:06 FOLLOW-UP Penicillins Allergy Swelling Verified 02/21/22 14:06 spider venom Allergy Hives Verified 02/21/22 14:06 morphine AdvReac Vomiting Verified 02/21/22 14:06 Social History Smoking Status: Current every day smoker tobacco type: cigarettes ROS ROS ED Constitutional Constitutional ED: Denies chills, fever(s) or sweats Eyes Eyes: Denies change in vision ENT ENT ED: Denies dysphagia or sore throat Cardiovascular Cardiovascular: Denies chest pain, leg edema, palpitations or racing heartbeat Respiratory/Chest Respiratory/Chest: Denies cough, dyspnea or dyspnea on exertion Gastrointestinal Gastrointestinal: Denies abdominal pain, diarrhea, nausea or vomiting Genitourinary Genitourinary ED: Denies dysuria, hematuria or urinary frequency Musculoskeletal Musculoskeletal: Reports extremity pain and other Details: Left foot injury ; Denies back pain or neck pain Integumentary Denies rash or wounds Neurologic Neurologic: Denies headache(s), paresthesias or weakness EXAM Physical Exam Const Vital Signs: 02/21/22 14:05 Temperature 97.2 F L Temperature Source Temporal Pulse Rate 74 Respiratory Rate 18 Blood Pressure 139/79 H Blood Pressure Mean 99 Pulse Ox 98 Oxygen Delivery Method Room Air Positive well nourished and well developed Constitutional Narrative: GCS 15. General Appearance ED: well developed and NAD HEENT Reports moist mucous membranes normocephalic and atraumatic Eyes PERRL, EOMs intact bilaterally and conjunctivae normal General Eye ED: Yes normal appearance of both eyes Neck no lymphadenopathy and supple General: Negative for tenderness Chest Wall Chest: Negative for tenderness Resp normal respiratory effort and normal air movement Effort and Inspection: symmetric chest movement; Negative for respiratory distress Cardio regular rate, regular rhythm and no murmurs Peripheral Pulses: pulses 2+ throughout GI normal to inspection, nondistended, normoactive bowel sounds and non-tender Palpation: Negative for guarding or rebound tenderness present Back/Spine no CVA tenderness and no thoracic nor lumbar tenderness Extremity Extremity Narrative: Left lower extremity: Foot examination there is a dorsal scar on the first metatarsal. Is no deformities. Tender palpation distal metatarsal and great toe. There is no deformities. Skin is intact. There is no ankle tenderness. Neuro vas intact distally. Right lower extremity: Full range of motion without tenderness. Right upper extremity: Is abrasion to dorsal forearm without bleeding. No pain of the joints. Noted deformities. Neuro vas intact distally. Left upper extremity: full range of motion. No pain or deformities. Neuro vas intact distally. General Extremety ED: Negative for edema or tenderness General Extremity: Negative for edema Neuro oriented x3 and no sensory deficits noted Sensorium / Orientation: awake and alert Skin no rashes or lesions noted and no wounds MDM MDM Radiography Diagnostic Testing: Clinical Impression(s) from Imaging Studies Foot X-Ray 02/21/22 14:14 IMPRESSION: Postoperative changes at the first metatarsophalangeal joint as well as fusion of the first cuneiform and base of the first metatarsal. Soft tissue swelling. Electronically Signed: Yaakov Pal MD at 14:42 EDT Reading Location ID and State: [facility] / [place] , Service support , Discharge Plan Triage Chief Complaint: Lower Extremity Injury ED Provider: Calderon Arshad Dx/Rx/DC Orders Clinical Impression: Sprain of foot, left, Injury of foot, left Instructions: ED Foot Sprain Prescriptions: No Action sertraline 100 MG tablet 100 mg PO DAILY amitriptyline 10 MG tablet 20 mg PO QHS omeprazole 20 MG capsule 20 mg PO BID prazosin [Minipress] 2 MG capsule 4 mg PO QHS mometasone [Asmanex Twisthaler] 220 MCG Aer.Pow.Ba 220 mcg IH QHS PRN (Reason: Sob &/Or Wheezing) hydrocodone-acetaminophen 1 TABLET tablet 1 - 2 tab PO Q4H PRN PRN (Reason: Pain) Qty: 12 0RF ondansetron 4 MG tablet 4 mg PO Q8H PRN PRN (Reason: Nausea) Qty: 10 0RF naproxen 500 MG tablet 500 mg PO BID PRN PRN (Reason: Pain) 10 Days Qty: 20 0RF ondansetron 4 MG tablet 4 mg PO Q8H PRN PRN (Reason: Nausea) Qty: 10 0RF [facility] [[facility]] - Activity Restrictions/Additional Instructions: Left foot x-ray negative for any fracture, hardware intact. Use ibuprofen 600 mg every 6 hours as needed. Disposition Disposition: Home, Self Care Discharge Date/Time: 02/21/22 14:57
[2022-02-21] MEDS: Ibuprofen 600 MG Tablet PO (14:23)
== END 2022-02-21 14:57 | disposition home or self-care (01) ==
PROVIDERS: Emergency Provider Emergency Medicine; Visit Provider Emergency Medicine
DX: S93.602A Unspecified sprain of left foot, initial encounter (principal); F17.210 Nicotine dependence, cigarettes, uncomplicated; X58.XXXA Exposure to other specified factors, initial encounter
CPT/HCPCS: 73630; 99282

== ENCOUNTER 2022-06-02 08:00 | Outpatient (RCR) | payer MEDICAID, SELFPAY ==
--- NOTE | 2022-01-12 11:06 | HP.PTEVAL_ITS ---
Patient's Visit Information AMAN DELUCA is a 51 year old M referred to Physical Therapy by EMILIANO HollingsworthM with a diagnosis of L hallux valgus deformity 10/06/21. Date of Evaluation: 01/12/22 Physical Therapist: Kenneth Turner PT, [facility] - Visit Plan Frequency: 2-3x /Week Duration: 6 Weeks Plan: L great toe PROM/mobs, L ankle stretching and strengthening, gait training, stair negotiation, bike, and HEP - Subjective DOS: 10/06/21. Pt reports the great toe on his L foot had a hallux valgus deformity present at that time. Pt reports his surgeon had to straighten out his toe and put a pin in it. Pt reports 2 weeks after his surgery, he slipped and fell which resulted in a mid foot fracture. Pt reports he spent 2 weeks in a gutter splint, and has been in a cam boot since. Pt reports the fracture in his foot is still not fully healed at this time which is why he is still in the boot. Pt reports he works for [employer] which requires him to perform heavy lifting tasks which he is unable to perform at this time. Pt reports he was in a lot of pain prior to surgery and is doing much better at this time. Pt reports occasional tingling in his great toe. Pt reports he has 2 stairs to get in to his house that he has to negotiate one at a time. Pt reports he still has difficulty with ascending hills at this time secondary to pain. No sleep difficulty at this time. 0/10 pain at rest, 7/10 pain at worst over the last week (when he has to walk a lot at work) - Pain L great toe Pain Intensity (Out of 10): 0 Pain Intensity Range: 7 - Objective Neuro: B LE sensation is WNL to light touch when compared bilaterally. Observation: Incision is fully healed. No signs of infection. Only mild swelling noted at this time. ROM: R first MTP flex= 35, ext= 45; L first MTP flex= 0, ext= 20. B ankles are WFL when compared bilaterally. MMT: R LE is 5/5 throughout. L ankle is grossly 4-/5 throughout, and L great toe is 3/5 through available ROM. Gait: Pt ambulates with a visible limp while ambulating without boot. Pt lacks toe off with L LE - Balance/Special Test Scores Lower Extremity Functional Score: 44 - Goals Goal 1:: Decrease L foot pain x 50% to aid with ambulation Goal Time Frame: 4-6 Weeks Goal 2:: Increase L ankle strength x 1 grade to aid with stair negotiation Goal Time Frame: 4-6 Weeks Goal 3:: I with HEP Goal Time Frame: 4-6 Weeks Goal 4:: Increase L great to ROM x 5-10 degrees to aid with restoring a more normalized gait pattern Goal Time Frame: 4-6 Weeks - Rehabilitation Potential Physical Therapy Diagnosis: Pt has L great toe pain, limited ROM, and L ankle weakness secondary to L great toe surgery Rehabilitation Potential: Good - Anticipated Interventions Patient/Client Instruction: Educate patient on: Condition, Plan of Care For the Purpose of:: To facilitate caregiver knowledge Therapeutic Exercise to Include: Strength training, Endurance training, Balance training, Flexibilty training, Gait and locomotor training, Passive ROM, Active ROM For the Purpose of:: To decrease pain, To increase ROM, To improve muscle performance and motor function Cryotherapy (ice pack, ice massage): Yes For the Purpose of:: To decrease pain Thank you for the opportunity to evaluate your patient. For Medicare and Medicare HMO plans, please review the plan of care and approve it. It will need to be FAXED BACK to us at [phone] for Medicare purposes. For Medicare only, by signing this I certify the plan of care. Please let me know if there are questions or concerns regarding this plan of care. Physician Signature: Date:
--- NOTE | 2022-02-08 08:25 | HP.PTREVAL_ITS ---
Dr. Inderjit Cortez, DPM, It has been my pleasure to treat AMAN DELUCA over the last 6 visits for L hallux valgus deformity 10/06/21. Please see the progress note below for an update on the physical therapy plan of care! Subjective: Pt reports he is very sore today. He has worked the past 2 days without his boot on Objective/Function: L foot pain is rated at 8/10 currently. L ankle MMT: 4-/5 throughout and painful. Pt is progressing but slowly secondary to work duties Plan Plan: L great toe PROM/mobs, L ankle stretching and strengthening, gait training, stair negotiation, bike, and HEP Balance/Gait/Functional tests - Balance/Special Test Scores Lower Extremity Functional Score: 51 Goals Goal 1:: Decrease L foot pain x 50% to aid with ambulation Goal Time Frame: 4-6 Weeks Goal Progress: Progressing Goal 2:: Increase L ankle strength x 1 grade to aid with stair negotiation Goal Time Frame: 4-6 Weeks Goal Progress: Progressing Goal 3:: I with HEP Goal Time Frame: 4-6 Weeks Goal Progress: Progressing Goal 4:: Increase L great to ROM x 5-10 degrees to aid with restoring a more normalized gait pattern Goal Time Frame: 4-6 Weeks Goal Progress: Progressing Anticipated Interventions Patient/Client Instruction: Educate patient on: Condition, Plan of Care For the Purpose of:: To facilitate caregiver knowledge Therapeutic Exercise to Include: Strength training, Endurance training, Balance training, Flexibilty training, Gait and locomotor training, Passive ROM, Active ROM For the Purpose of:: To decrease pain, To increase ROM, To improve muscle performance and motor function Cryotherapy (ice pack, ice massage): Yes For the Purpose of:: To decrease pain Please do not hesitate to contact me at [phone] by phone or Fax: if you have questions or concerns regarding this new plan of care! Sincerely, Kenneth Turner, PT, ATC
--- NOTE | 2022-02-22 08:30 | HP.PTREVAL ---
Dr. Inderjit Cortez, DPM, It has been my pleasure to treat AMAN DELUCA over the last 12 visits for L hallux valgus deformity 10/06/21. Please see the progress note below for an update on the physical therapy plan of care! Subjective: Pt reports he fell down 4 stairs at work yesterday and has been in severe pain since. Pt reports he is to follow up with the surgeon on 02/27. Pt reports he has been placed back into the office at work now as a result. Pt notes he had x-rays yesterday which revealed no fractures. Objective/Function: L foot pain is currently 8/10 secondary to his recent fall. L ankle strength is grossly 4-/5 throughout and is painful with all testing. L great toe ROM: flex= 5, ext= 30 degrees. Pt was making excellent progress toward Rx goals until falling at work yesterday. Plan Plan: Cont with strengthening, ROM, and balance activity after visit on 02/27/22. Balance/Gait/Functional tests - Balance/Special Test Scores Lower Extremity Functional Score: 51 Goals Goal 1:: Decrease L foot pain x 50% to aid with ambulation Goal Time Frame: 4-6 Weeks Goal Progress: Progressing Goal 2:: Increase L ankle strength x 1 grade to aid with stair negotiation Goal Time Frame: 4-6 Weeks Goal Progress: Progressing Goal 3:: I with HEP Goal Time Frame: 4-6 Weeks Goal Progress: Progressing Goal 4:: Increase L great to ROM x 5-10 degrees to aid with restoring a more normalized gait pattern Goal Time Frame: 4-6 Weeks Goal Progress: Progressing Anticipated Interventions Patient/Client Instruction: Educate patient on: Condition, Plan of Care For the Purpose of:: To facilitate caregiver knowledge Therapeutic Exercise to Include: Strength training, Endurance training, Balance training, Flexibilty training, Gait and locomotor training, Passive ROM, Active ROM For the Purpose of:: To decrease pain, To increase ROM, To improve muscle performance and motor function Cryotherapy (ice pack, ice massage): Yes For the Purpose of:: To decrease pain Please do not hesitate to contact me at [phone] by phone or if you have questions or concerns regarding this new plan of care! Sincerely, Kenneth Turner, PT, ATC
--- NOTE | 2022-03-29 08:01 | HP.PTREVAL ---
Dr. Inderjit Cortez, DPM, It has been my pleasure to treat AMAN DELUCA over the last 22 visits for L hallux valgus deformity 10/06/21. Please see the progress note below for an update on the physical therapy plan of care! Subjective: Pt reports he had to soak his L foot in the tub for 1 1/2 hours last night secondary to pain. Pt reports he is definitely making improvements, but is far from where he needs to be to perform his work requirements without limitation Objective/Function: R foot pain 5/10 currently, increases to 10/10 at worst (when he is working). R ankle MMT: PF= 5/5, DF and eversion 4-/5, Inv=3+/5. R great toe flex= 0, ext= 40 degrees. Pt is making progress with strength and ROM, but is still limited with all activity secondary to pain. Pt would benefit from further PT with focus on strengthening, ROM, and pain reduction Plan Plan: Continue to focus on L foot/ankle strengthening and ROM activity with transition to standing activity Balance/Gait/Functional tests - Balance/Special Test Scores Lower Extremity Functional Score: 45 Goals Goal 1:: Decrease L foot pain x 50% to aid with ambulation Goal Time Frame: 4-6 Weeks Goal Progress: Progressing Goal 2:: Increase L ankle strength x 1 grade to aid with stair negotiation Goal Time Frame: 4-6 Weeks Goal Progress: Progressing Goal 3:: I with HEP Goal Time Frame: 4-6 Weeks Goal Progress: Progressing Goal 4:: Increase L great toe ROM x 5-10 degrees to aid with restoring a more normalized gait pattern Goal Time Frame: 4-6 Weeks Goal Progress: Progressing Goal 5:: Pt will be able to perform all of his work requirements without limitation Goal Time Frame: 4-6 Weeks Goal Progress: New goal Anticipated Interventions Patient/Client Instruction: Educate patient on: Condition, Plan of Care For the Purpose of:: To facilitate caregiver knowledge Therapeutic Exercise to Include: Strength training, Endurance training, Balance training, Flexibilty training, Gait and locomotor training, Passive ROM, Active ROM For the Purpose of:: To decrease pain, To increase ROM, To improve muscle performance and motor function Cryotherapy (ice pack, ice massage): Yes For the Purpose of:: To decrease pain Please do not hesitate to contact me at [phone] by phone or if you have questions or concerns regarding this new plan of care! Sincerely, Kenneth Turner, PT, ATC
--- NOTE | 2022-04-28 08:35 | HP.PTREVAL ---
Dr. Inderjit Crotez, DPM, It has been my pleasure to treat AMAN DELUCA over the last 31 visits for L hallux valgus deformity 10/06/21. Please see the progress note below for an update on the physical therapy plan of care! Subjective: I had to leave work early the past couple days because my foot was in so much pain. Objective/Function: L foot pain is currently 6/10, increases to 9/10 at worst. L great toe extension 30 degrees. L ankle MMT: 4/5 throughout. Pt is still limited with most work requirements secondary to pain Plan Plan: Continue to focus on L foot/ankle strengthening and ROM activity with transition to standing activity Balance/Gait/Functional tests - Balance/Special Test Scores Lower Extremity Functional Score: 48 Goals Goal 1:: Decrease L foot pain x 50% to aid with ambulation Goal Time Frame: 4-6 Weeks Goal Progress: Progressing Goal 2:: Increase L ankle strength x 1 grade to aid with stair negotiation Goal Time Frame: 4-6 Weeks Goal Progress: Progressing Goal 3:: I with HEP Goal Time Frame: 4-6 Weeks Goal Progress: Progressing Goal 4:: Increase L great toe ROM x 5-10 degrees to aid with restoring a more normalized gait pattern Goal Time Frame: 4-6 Weeks Goal Progress: Progressing Goal 5:: Pt will be able to perform all of his work requirements without limitation Goal Time Frame: 4-6 Weeks Goal Progress: Progressing Anticipated Interventions Patient/Client Instruction: Educate patient on: Condition, Plan of Care For the Purpose of:: To facilitate caregiver knowledge Therapeutic Exercise to Include: Strength training, Endurance training, Balance training, Flexibilty training, Gait and locomotor training, Passive ROM, Active ROM For the Purpose of:: To decrease pain, To increase ROM, To improve muscle performance and motor function Cryotherapy (ice pack, ice massage): Yes For the Purpose of:: To decrease pain Please do not hesitate to contact me at [phone] by phone or if you have questions or concerns regarding this new plan of care! Sincerely, Kenneth Turner, PT, ATC
--- NOTE | 2022-06-02 08:41 | HP.PTDCSUM ---
It has been my pleasure to treat AMAN DELUCA referred by Dr. Inderjit Cortez DPM, with the diagnosis of L hallux valgus deformity 10/06/21 for a total of 41 visit(s). Discharge Date: Please see the following information for a summary of their discharge status. Subjective: Pt reports he is ready to be discharged L great toe Pain Intensity (Out of 10): 0 % Improvement: 95 Objective/Function: L foot pain 0/10. L ankle MMT: 4+/5 throughout. Pt is I with HEP and is not limited with work duties at this time. Rx goals achieved Goal 1:: Decrease L foot pain x 50% to aid with ambulation Goal Progress: Goal Met Goal 2:: Increase L ankle strength x 1 grade to aid with stair negotiation Goal Progress: Goal Met Goal 3:: I with HEP Goal Progress: Goal Met Goal 4:: Increase L great toe ROM x 5-10 degrees to aid with restoring a more normalized gait pattern Goal Progress: Goal Met Goal 5:: Pt will be able to perform all of his work requirements without limitation Goal Progress: Goal Met Plan: Discharge to [facility] If there are questions or concerns regarding this patient's physical therapy, please feel free to call me at [phone]. Thank you for the referral of this patient. Sincerely, Kenneth Turner, PT, ATC Balance/Gait/Functional tests - Balance/Special Test Scores Lower Extremity Functional Score: 63
== END 2022-06-02 19:00 | disposition home or self-care (01) ==
LOC: PT 08:00
PROVIDERS: Referring Provider Student in an Organized Health Care Education/Training Program; Visit Provider Student in an Organized Health Care Education/Training Program
DX: M20.12 Hallux valgus (acquired), left foot (principal)
CPT/HCPCS: 97110; 97140; 97161; 97164

== ENCOUNTER 2022-09-20 12:46 | Emergency (ER) | payer MEDICAID, SELFPAY ==
[2022-09-20 12:46] VITALS: BP 156/98; PULSE 91; RESP 18; TEMP 36.6; O2SAT 97; BMI 28.6
--- NOTE | 2022-09-20 12:59 | EDS_ITS ---
HPI History of Present Illness Chief Complaint: Shortness of Breath Detail of Chief Complaint: History of chronic bronchitis and asthma. Asthma attack yesterday. Informant: patient Onset/Context/Timing Onset: Today and Yesterday Context: gradual Current Severity: Mild Maximum Severity: Mild Worsened by: Nothing Relieved by: Nothing Associated Symptoms cough and yellow sputum Chest Pain: Positive for None Narrative Narrative: 72-year-old male history of asthma and chronic bronchitis. And PTSD. Not on home oxygen. Has nebulizer at home. States yesterday at work it has been tach. He had a cough of yellowish sputum. No fever or chills. No chest pain. No hemoptysis. No history of DVT or PE risk factors. He still smokes about half pack cigarettes a day. Says he is just not feeling back to his baseline. D enies any leg swelling that is new or new leg pain. PE Risk Factors: Negative for Cancer, OCP + Smoking + > 35, Prior DVT or PE, Recent immobilization, Recent surgery or Recent travel Prior similar symptoms: Yes Recent Illness/Hospitalization: No PFSH PFSH Medical History (Updated 09/20/22 @ 15:[address] Jaime Salinas MD) COPD (chronic obstructive pulmonary disease) PTSD (post-traumatic stress disorder) Home Medications amitriptyline 10 mg tablet 20 mg PO QHS 10/02/15 [History Last Taken Unknown] mometasone 220 mcg/actuation(14 doses) breath activated powder inhaler (Asmanex Twisthaler) 220 mcg IH QHS PRN Sob &/Or Wheezing 10/02/15 [History Last Taken Unknown] omeprazole 20 mg capsule,delayed release 20 mg PO BID 10/02/15 [History Last Taken Unknown] prazosin 2 mg capsule (Minipress) 4 mg PO QHS 10/02/15 [History Last Taken Unknown] sertraline 100 mg tablet 100 mg PO DAILY 10/02/15 [History Last Taken Unknown] hydrocodone-acetaminophen 5-325mg 5mg-325mg 1 - 2 tab PO Q4H PRN PRN Pain ##12 08/16/16 [Rx Last Taken Unknown] ondansetron 4 mg disintegrating tablet 4 mg PO Q8H PRN PRN Nausea #10 tabs 10/26/16 [Rx Last Taken Unknown] naproxen 500 mg tablet 500 mg PO BID PRN PRN Pain 10 days #20 tabs 07/13/17 [Rx Last Taken Unknown] ondansetron 4 mg disintegrating tablet 4 mg PO Q8H PRN PRN Nausea #10 tabs 07/29/20 [Rx Last Taken Unknown] prednisone 20 mg tablet 40 mg PO DAILY 5 days #10 tabs 09/20/22 [Rx Last Taken Unknown] Allergy/AdvReac Type Severity Reaction Status Date / Time bee venom protein (honey bee) Allergy NEEDS Verified 09/20/22 12:49 FOLLOW-UP latex Allergy Other Verified 09/20/22 12:49 meloxicam Allergy Itching Verified 09/20/22 12:49 onion Allergy NEEDS Verified 09/20/22 12:49 FOLLOW-UP Penicillins Allergy Swelling Verified 09/20/22 12:49 spider venom Allergy Hives Verified 09/20/22 12:49 morphine AdvReac Vomiting Verified 09/20/22 12:49 Social History Smoking Status: Current every day smoker tobacco type: cigarettes ROS ROS ED ROS Narrative Shortness of breath. Cough yellowish sputum. Review of Systems ROS Unobtainable: Denies due to encephalopathy Constitutional Constitutional ED: Denies chills or fever(s) Eyes Eyes: Denies blurry vision ENT ENT ED: Denies ear pain Cardiovascular Cardiovascular: Denies chest pain, palpitations or racing heartbeat Respiratory/Chest Respiratory/Chest: Reports cough, dyspnea and sputum Gastrointestinal Gastrointestinal: Denies abdominal pain, diarrhea, nausea or vomiting Genitourinary Genitourinary ED: Denies dysuria or hematuria Musculoskeletal Musculoskeletal: Denies arthralgias or back pain Integumentary Denies abscess Neurologic Neurologic: Denies headache(s) Psychiatric Psychiatric: Denies anxiety Endocrine Endocrinology: Denies cold intolerance Hematologic/Lymphatic Hematologic/Lymphatic: Denies easy bleeding Allergic/Immunologic Allergic/Immunologic ED: Denies mouth swelling EXAM Physical Exam Narrative Exam Narrative: 52-year-old male vital signs stable afebrile. Pulse ox 97%. He does not look septic or toxic or in any distress. H EENT exam unremarkable. Small tobacco. Neck nontender no JVD. Lungs clear to auscultation bilaterally. Dry cough. No rales, rhonchi or wheezing. Heart regular rhythm no murmur. Rate about 90. Abdomen soft nontender normal bowel sounds no peritoneal signs. Moving all 4 extremities. Calves are nontender without edema or cords. Neurologically is awake alert with no focal motor deficits. Const Vital Signs: 09/20/22 12:46 09/20/22 13:16 09/20/22 13:16 Temperature 98 F Temperature Source Temporal Pulse Rate 91 Respiratory Rate 18 Respiratory Effort Short of Breath Respiratory Depth Normal Respiratory Pattern Normal Blood Pressure 156/98 H Blood Pressure Mean 117 Pulse Ox 97 Oxygen Delivery Method Room Air Room Air Room Air Positive well nourished and well developed; Negative for obese, cachectic, contractures or unkempt General Appearance ED: well developed and NAD; Negative for unkempt, cachectic, contractures or pallor Nutritional Appearance: Negative for cachectic or obese HEENT Reports moist mucous membranes; Denies dry mucous membranes atraumatic; Negative for trauma or tenderness Mouth ED: No dry mucous membranes Mouth: No dry mucous membranes Eyes PERRL and EOMs intact bilaterally General Eye ED: Negative for pale conjunctiva or scleral icterus Neck no lymphadenopathy, supple, no meningeal signs and no JVD Lymph Lymphatic: Negative for other Resp normal respiratory effort and clear to auscultation bilaterally Effort and Inspection: Negative for pain with movement Auscultation: Negative for rales, rhonchi or wheezes Cardio regular rate, regular rhythm, S1 normal heart sound, S2 normal heart sound and no murmurs Rate: Negative for bradycardia Rhythm: Negative for abnormal rhythm GI non-tender, non-distended and no masses Inspection: Negative for other Palpation: soft; Negative for tender or guarding Back/Spine no CVA tenderness and normal to inspection General Back: Negative for CVA tenderness Extremity normal to inspection General Extremety ED: Negative for edema or tenderness General Extremity: Negative for edema Neuro oriented x3 and CN's II-XII intact bilaterally Sensorium / Orientation: alert, oriented to person, oriented to place and oriented to time; Negative for orientation impaired, confused, lethargic or stuporous Speech: speech normal Motor Exam: strength 5/5 throughout Psych mental status grossly normal Appearance: Negative for unkempt Attitude: No agitated Mood & Affect: Negative for depressed Thought Process: normal thought process Skin no wounds and skin turgor normal General Skin Exam: Negative for jaundice or pallor Lesions: no lesions Rashes: no rashes Trauma: Negative for abrasion or laceration MDM MDM MDM Narrative Medical decision making narrative: 52-year-old male history of asthma and chronic bronchitis with asthma flare yesterday. No chest pain or hemoptysis. Cough with yellowish sputum. Clinically looks well. Says he is not feeling right. Will undergo cardiac work-up. Clinically I do not think this will end up being cardiac. The disease is exacerbation of his chronic bronchitis and asthma. He will be given 1 dose of prednisone. I do not think he needs any breathing treatments at this time. Repeat exam patient is doing well at 2:58 PM. He will be discharged home. We went over his labs, chest x-ray and EKG. He will be started on prednisone 40 mg a day for 5 days. Follow-up with his primary care physician as needed return if worse. History & Record Review Discussion w/independent historian: Patient Lab Data Attestation: I reviewed the patient's lab results. Lab results narrative: CBC shows white count 4.3. H&H 14 and 42. Platelets 213. Sodium 134 gap of 3 normal BUN and creatinine. Glucose 98. Troponin 10. Labs: Laboratory Results - last 24 hr 09/20/22 09/20/22 13:12 13:12 WBC 4.3 L RBC 5.01 Hgb 14.6 Hct 42.6 MCV 85.0 MCH 29.1 MCHC 34.3 RDW Std Deviation 42.1 RDW Coeff of Pamela 13.5 Plt Count 213 MPV 8.3 Immature Gran % (Auto) 0.200 Neut % (Auto) 42.7 L Lymph % (Auto) 39.3 Graves % (Auto) 14.8 H Eos % (Auto) 2.3 Baso % (Auto) 0.7 Absolute Neuts (auto) 1.8 L Absolute Lymphs (auto) 1.68 Nucleated RBC % 0 Sodium 134 L Potassium 4.2 Chloride 106 Carbon Dioxide 25.0 Anion Gap 3 L BUN 11 Creatinine 0.93 Estim Creat Clear Calc 88.87 Est GFR (MDRD) Af Amer 110 Est GFR (MDRD) Non-Af 91 BUN/Creatinine Ratio 11.9 Glucose 98 Calcium 8.9 Troponin I High Sens 10 Radiography Chest X-Ray - ED: 1 View, Read by ED Physician, Normal, Heart, Lungs, Mediastinum, Bony Structures, No Acute Disease and Chronic Changes Diagnostic Testing: Clinical Impression(s) from Imaging Studies Chest X-Ray 09/20/22 13:20 IMPRESSION: Normal x-ray examination of the chest. Electronically Signed: Javi Sidhu MD at 13:31 EDT , Chest x-ray, portable, single view shows no acute abnormality. Interpreted both by myself and the radiologist. Normal cardiac silhouette. No infiltrate. Rhythm Strip Rhythm Strip: Sinus Rhythm Rate: 80 Ectopy: None EKG Initial EKG: Attestation: I personally reviewed and interpreted this EKG as follows: Interpretation: Sinus Rhythm and No Acute Injury Pattern Comments: Normal sinus rhythm rate of 80 no acute signs of PR or ischemia Discharge Plan Triage Chief Complaint: Shortness of Breath ED Provider: Jaime Salinas Dx/Rx/DC Orders Clinical Impression: Acute exacerbation of chronic bronchitis, History of posttraumatic stress disor vianney (PTSD) Instructions: ED Asthma, Acute (Adult) Prescriptions: New prednisone 20 mg tablet 40 mg PO DAILY 5 Days Qty: 10 0RF No Action sertraline 100 MG tablet 100 mg PO DAILY amitriptyline 10 MG tablet 20 mg PO QHS omeprazole 20 MG capsule 20 mg PO BID prazosin [Minipress] 2 MG capsule 4 mg PO QHS mometasone [Asmanex Twisthaler] 220 MCG aerosol powdr breath activated 220 mcg IH QHS PRN (Reason: Sob &/Or Wheezing) hydrocodone-acetaminophen 1 TABLET tablet 1 - 2 tab PO Q4H PRN PRN (Reason: Pain) Qty: 12 0RF ondansetron 4 MG tablet 4 mg PO Q8H PRN PRN (Reason: Nausea) Qty: 10 0RF naproxen 500 MG tablet 500 mg PO BID PRN PRN (Reason: Pain) 10 Days Qty: 20 0RF ondansetron 4 MG tablet 4 mg PO Q8H PRN PRN (Reason: Nausea) Qty: 10 0RF [facility] Care Provider: [facility] [facility] [Primary [facility] Provider] - 1 Week if not improving Activity Restrictions/Additional Instructions: I discussed the thickness and lightheadedness radiation to your underlying chronic bronchitis and asthma. No signs of infection. Prednisone 40mg for 5 days. Use your inhaler and nebulizer at home as needed. Follow-up with your doctor as needed. Disposition Disposition: Home, Self Care
--- NOTE | 2022-09-20 12:59 | EKG12_ITS ---
Test Reason : SOB Blood Pressure : / mmHG Vent. Rate : 080 BPM Atrial Rate : 080 BPM P-R Int : 166 ms QRS Dur : 076 ms QT Int : 350 ms P-R-T Axes : 057 070 033 degrees QTc Int : 403 ms Normal sinus rhythm Normal ECG Confirmed by URBANO CANO ([id number]), food editor GILMA ROACH ([id number]) on 09/26/2022 7:30:39 AM Referred By: Jaime Salinas Confirmed By:URBANO CANO
[2022-09-20] MEDS: predniSONE 20 MG Tablet 40 MG PO (13:07)
[2022-09-20 13:20] LABS: Absolute Lymphocyte Count 1.68 X10^3/uL (0.83-4.51); Absolute Neutrophil Count 1.8 X10^3/uL (2.0-7.7); Basophil# 0.03 X10^3/uL; Basophil% 0.7 % (0-1); Eosinophils% 2.3 % (0-5); Hematocrit 42.6 % (40-54); Hemoglobin 14.6 g/dL (13.0-16.5); Lymphocyte # 1.68 X10^3/ul (0.83-4.51); Lymphocyte % 39.3 % (19-41); Mean Corp Hgb Conc 34.3 g/dL (32-36); Mean Corpuscular Hgb 29.1 pg (27.0-32.0); Mean Platelet Vol. 8.3 fl (6.2-12.0); Monocyte# 0.63 X10^3/uL; Monocyte% 14.8 % (0-10); NRBC Flagged by Analyzer 0 % (0-5); Neutrophil # 1.82 X10^3/uL (2.7-7.7); Neutrophil % 42.7 % (47-70); Platelet Count 213 K/mm3 (150-450); RBC Distribution Width CV 13.5 % (11.6-14.6); RBC Distribution Width SD 42.1 fl (35.1-43.9); Red Blood Count 5.01 M/mm3 (4.6-6.2); White Blood Count 4.3 K/mm3 (4.4-11.0)
--- NOTE | 2022-09-20 13:20 | RAD_ITS ---
STUDY: X-RAY CHEST REASON FOR EXAM: Male, 52 years old. Chest pain TECHNIQUE: Single AP portable view of the chest. COMPARISON: 09/16/2021 FINDINGS: EKG leads overlie the chest The lungs are clear and expanded. There is no demonstrated pleural abnormality. Normal size heart. Normal mediastinum and ben. Normal visualized pulmonary arteries. Normal visualized aortic arch and descending thoracic aorta. Normal visualized thoracic spine. Normal visualized ribs, clavicles, and shoulders. There is no demonstrated abnormality of the visualized soft tissue structures of the upper abdomen. RAD/Chest 1 View (Portable) IMPRESSION: Normal x-ray examination of the chest. Electronically Signed: Javi Sidhu MD at 13:31 EDT ,
[2022-09-20 13:36] LABS: Anion Gap 3 (5-15); BUN 11 mg/dL (7-18); BUN/Creat Ratio 11.9 RATIO (10-20); Calcium,Total 8.9 mg/dL (8.5-10.1); Chloride 106 mmol/L (98-107); Creatinine, Serum 0.93 mg/dL (0.70-1.30); EST Glomerular Filtration Rate 91 mL/min (>60); Est Glom Filt Rate - Afr Amer 110 mL/min (>60); Estimated Creatinine Clearance 88.87 ml/min; Glucose 98 mg/dL (74-106); Potassium 4.2 mmol/L (3.5-5.1); Sodium Level 134 mmol/L (136-145); Troponin-I HS 10 pg/mL (3.0-78.0)
== END 2022-09-20 15:20 | disposition home or self-care (01) ==
PROVIDERS: Emergency Provider Emergency Medicine; Referring Provider Emergency Medicine; Visit Provider Emergency Medicine
DX: J44.9 Chronic obstructive pulmonary disease, unspecified (principal); F43.10 Post-traumatic stress disorder, unspecified; F17.210 Nicotine dependence, cigarettes, uncomplicated
CPT/HCPCS: 71045; 80048; 84484; 85025; 93005; 99285

== ENCOUNTER 2023-02-14 19:08 | Emergency (ER) | payer MEDICAID, OTHER, SELFPAY ==
[2023-02-14 19:10] VITALS: BP 219/117; PULSE 72; RESP 18; TEMP 36.2; O2SAT 98; BMI 28.2
[2023-02-14] MEDS: HYDROcodone Bitartrate/Apap 5/325 Tablet PO (22:03)
[2023-02-14] MEDS: Clindamycin HCl 150 MG Capsule 300 MG PO (22:03)
[2023-02-14 22:04] VITALS: RESP 16
--- NOTE | 2023-02-14 23:14 | ED.VIS.DENTA ---
HPI History of Present Illness Chief Complaint: Dental Informant: patient Onset/Context/Timing Onset: Yesterday Context: Gradual Onset Timing: Continuous Quality: Aching Location: Right lower molar Worsened by: Nothing Relieved by: - (Heat) Associated Symptoms Assocated Symptom - Dental: jaw swelling, face swelling, cold sensitivity and hot sensitivity; Negative for fever Narrative Narrative: Patient presents with right lower dental pain that began yesterday. Patient states it came on gradually. Patient states it has been constant. Patient describes the pain as aching. Patient states pain is mainly over the right lower molar area. Patient states that hot packs seem to help with it. Patient denies any fevers or chills. Patient does admit to some jaw and lower facial swelling. Patient also admits to hot and cold sensitivity. Patient states he has an appoint with his dentist this week. [facility] Medical History (Updated 02/15/23 @ 00:[address] Antonio Crespo, DO) Asthma COPD (chronic obstructive pulmonary disease) GERD (gastroesophageal reflux disease) Hypertension PTSD (post-traumatic stress disorder) Home Medications amitriptyline 10 mg tablet 20 mg PO QHS 10/02/15 [History Last Taken Unknown] mometasone 220 mcg/actuation(14 doses) breath activated powder inhaler (Asmanex Twisthaler) 220 mcg IH QHS PRN Sob &/Or Wheezing 10/02/15 [History Last Taken Unknown] omeprazole 20 mg capsule,delayed release 20 mg PO BID 10/02/15 [History Last Taken Unknown] prazosin 2 mg capsule (Minipress) 4 mg PO QHS 10/02/15 [History Last Taken Unknown] sertraline 100 mg tablet 100 mg PO DAILY 10/02/15 [History Last Taken Unknown] ondansetron 4 mg disintegrating tablet 4 mg PO Q8H PRN PRN Nausea #10 tabs 10/26/16 [Rx Last Taken Unknown] naproxen 500 mg tablet 500 mg PO BID PRN PRN Pain 10 days #20 tabs 07/13/17 [Rx Last Taken Unknown] ondansetron 4 mg disintegrating tablet 4 mg PO Q8H PRN PRN Nausea #10 tabs 07/29/20 [Rx Last Taken Unknown] clindamycin HCl 300 mg capsule (Cleocin HCl) 300 mg PO Q6H #40 CAPSULES 02/14/23 [Rx Last Taken Unknown] hydrocodone-acetaminophen 5-325mg 5mg-325mg 1 tab PO Q6H PRN PRN Pain 3 days #10 TABLETS 02/14/23 [Rx Last Taken Unknown] Allergy/AdvReac Type Severity Reaction Status Date / Time bee venom protein (honey bee) Allergy NEEDS Verified 02/14/23 19:12 FOLLOW-UP latex Allergy Other Verified 02/14/23 19:12 meloxicam Allergy Itching Verified 02/14/23 19:12 onion Allergy NEEDS Verified 02/14/23 19:12 FOLLOW-UP Penicillins Allergy Swelling Verified 02/14/23 19:12 spider venom Allergy Hives Verified 02/14/23 19:12 morphine AdvReac Vomiting Verified 02/14/23 19:12 Surgical History (Updated 02/15/23 @ 00:[address] Antonio Crespo DO) History of bunionectomy Social History Smoking Status: Current every day smoker tobacco type: cigarettes ROS ROS ED Constitutional Constitutional ED: Denies chills or fever(s) Eyes Eyes: Denies blurry vision or change in vision ENT ENT ED: Denies rhinorrhea or sore throat Cardiovascular Cardiovascular: Denies chest pain or palpitations Respiratory/Chest Respiratory/Chest: Denies cough or dyspnea Gastrointestinal Gastrointestinal: Reports nausea; Denies vomiting Genitourinary Genitourinary ED: Denies dysuria or hematuria Musculoskeletal Musculoskeletal: Denies back pain or neck pain Integumentary Denies abscess or rash Neurologic Neurologic: Denies headache(s) or weakness Allergic/Immunologic Allergic/Immunologic ED: Denies mouth swelling or urticaria EXAM Physical Exam Const Vital Signs: 02/14/23 19:10 02/14/23 22:04 Temperature 97.2 F L Temperature Source Temporal Pulse Rate 72 Respiratory Rate 18 16 Blood Pressure 219/117 H Blood Pressure Mean 151 Pulse Ox 98 Oxygen Delivery Method Room Air Positive well nourished and well developed General Appearance ED: well developed and NAD HEENT HEENT Narrative: There is an infected dental carry over the right lower first molar. There is some gingival edema around this tooth. There is no fluctuance. There is no evidence of any abscess. There is no sublingual edema. There is no evidence of Adalberto's angina. Mouth ED: Yes oral and palatal mucosa normal Mouth: oral and palatal mucosa normal Teeth and Gingiva: caries and gingiva abnormal Positive for gingival edema Throat: posterior oropharynx normal Neck supple and no JVD General: normal visual inspection; Negative for anterior neck swelling, tenderness or submandibular swelling Neuro oriented x3, CN's II-XII intact bilaterally, moves all extremities, no focal motor deficits and no sensory deficits noted Sensorium / Orientation: alert Motor Exam: strength 5/5 throughout Psych mental status grossly normal MDM MDM MDM Narrative Medical decision making narrative: Patient is allergic to penicillin. Patient was given a dose of clindamycin and [place] here. Patient was given a prescription for clindamycin. Patient was also given a prescription for a short course of [place]. Smoking cessation was discussed. Patient was instructed to follow-up with his dentist as scheduled. Patient understood and was agreeable with the plan. All questions were answered. Discharge Plan Triage Chief Complaint: Dental ED Provider: Antonio Crespo Dx/Rx/DC Orders Clinical Impression: Infected dental caries Instructions: ED Dental Pain, ED Dental Cavity Prescriptions: New clindamycin HCl [Cleocin HCl] 300 mg capsule 300 mg PO Q6H Qty: 40 0RF hydrocodone-acetaminophen [hydrocodone-acetaminophen] 5-325 mg tablet 1 tab PO Q6H PRN PRN (Reason: Pain) 3 Days Qty: 10 0RF No Action sertraline 100 MG tablet 100 mg PO DAILY amitriptyline 10 MG tablet 20 mg PO QHS omeprazole 20 MG capsule 20 mg PO BID prazosin [Minipress] 2 MG capsule 4 mg PO QHS Asmanex Twisthaler 220 MCG aerosol powdr breath activated 220 mcg IH QHS PRN (Reason: Sob &/Or Wheezing) ondansetron 4 MG tablet 4 mg PO Q8H PRN PRN (Reason: Nausea) Qty: 10 0RF naproxen 500 MG tablet 500 mg PO BID PRN PRN (Reason: Pain) 10 Days Qty: 20 0RF ondansetron 4 MG tablet 4 mg PO Q8H PRN PRN (Reason: Nausea) Qty: 10 0RF [facility] Care Provider: [facility] [facility] [[facility] Provider] - 5-7 Days Dentist,Your [STAFF PHYSICIAN] - Keep Harsha appointment Disposition Disposition: Home, Self Care Discharge Date/Time: 02/14/23 22:05
== END 2023-02-14 22:05 | disposition home or self-care (01) ==
PROVIDERS: Emergency Provider Emergency Medicine; Visit Provider Emergency Medicine
DX: K02.9 Dental caries, unspecified (principal); F17.210 Nicotine dependence, cigarettes, uncomplicated; I10 Essential (primary) hypertension; Z79.899 Other long term (current) drug therapy
CPT/HCPCS: 99283

== ENCOUNTER 2023-03-12 09:23 | Emergency (ER) | payer MEDICAID, SELFPAY ==
[2023-03-12 09:25] VITALS: BP 146/84; PULSE 109; RESP 16; TEMP 36.4; O2SAT 99; BMI 27.4
--- NOTE | 2023-03-12 11:05 | CT_ITS ---
STUDY: CT ABDOMEN AND PELVIS WITH CONTRAST REASON FOR EXAM: Male, 52 years old. Left sided abd pain RADIATION DOSAGE (If Supplied By Facility): CTDIvol = ( 14.78 ) mGy, DLP = ( 864.22 ) mGycm TECHNIQUE: IV 100mL Isovue-370 was administered. Transaxial images were obtained from the dome of the diaphragm to the symphysis pubis. Multiplanar coronal and sagittal images were reformatted. Individualized Dose Optimization Techniques Were Used For This CT. COMPARISON: Prior study dated: 07/29/2020. FINDINGS: Hypoventilatory and mild atelectatic changes in the lung bases. The visualized portions of the heart are within normal limits. No focal lesion is seen in the liver. There are surgical clips in the gallbladder fossa consistent with a prior cholecystectomy. Normal spleen. Normal pancreas. Stable 1.8 cm left adrenal nodule likely due to adenoma. Probable small adenoma in the right adrenal gland. Normal visualized stomach. Nonspecific fluid-filled distal small bowel loops. Thickening and inflammatory changes of the sigmoid colon consistent with acute diverticulitis. No evidence of free air or drainable abscess. The appendix is visualized and appears normal. There is diffuse atherosclerotic calcification of the abdominal aorta, without a demonstrated aneurysm. No retroperitoneal adenopathy. Normal right kidney. Normal left kidney. Bladder is not well distended. There is a small umbilical hernia containing fat. No demonstrated acute osseous changes. CT/Abdomen/Pelvis W IV Cont ONLY IMPRESSION: 1. Thickening and inflammatory changes of the sigmoid colon consistent with acute diverticulitis. 2. Status post cholecystectomy. 3. Stable left adrenal adenoma. 4. Small umbilical hernia containing fat. Electronically Signed: Mahesh Huffman MD at 12:35 EDT ,
[2023-03-12] MEDS: Ketorolac 15 MG/ML Vial IV (11:17)
[2023-03-12] MEDS: 0.9% Normal Saline (1000mL) 1,000 ML 125 ML IV (11:17)
[2023-03-12 11:21] LABS: Absolute Lymphocyte Count 1.94 X10^3/uL (0.83-4.51); Absolute Neutrophil Count 10.7 X10^3/uL (2.0-7.7); Basophil# 0.03 X10^3/uL; Basophil% 0.2 % (0-1); Eosinophil# 0.11 X10^3/uL; Eosinophils% 0.8 % (0-5); Hematocrit 43.3 % (40-54); Lymphocyte # 1.94 X10^3/ul (0.83-4.51); Lymphocyte % 13.8 % (19-41); Mean Corp Hgb Conc 34.6 g/dL (32-36); Mean Corpuscular Hgb 29.5 pg (27.0-32.0); Mean Corpuscular Volume 85.2 fL (80-94); Mean Platelet Vol. 9.3 fl (6.2-12.0); Monocyte# 1.29 X10^3/uL; Monocyte% 9.1 % (0-10); NRBC Flagged by Analyzer 0 % (0-5); Neutrophil % 75.9 % (47-70); Platelet Count 255 K/mm3 (150-450); RBC Distribution Width CV 13.4 % (11.6-14.6); RBC Distribution Width SD 41.8 fl (35.1-43.9); Red Blood Count 5.08 M/mm3 (4.6-6.2); White Blood Count 14.1 K/mm3 (4.4-11.0)
[2023-03-12 11:29] LABS: Anion Gap 6 (5-15); BUN 7 mg/dL (7-18); BUN/Creat Ratio 8.1 RATIO (10-20); Calcium,Total 8.9 mg/dL (8.5-10.1); Chloride 103 mmol/L (98-107); Creatinine, Serum 0.86 mg/dL (0.70-1.30); EST Glomerular Filtration Rate 98 mL/min (>60); Est Glom Filt Rate - Afr Amer 119 mL/min (>60); Estimated Creatinine Clearance 92.87 ml/min; Glucose 108 mg/dL (74-106); Potassium 3.6 mmol/L (3.5-5.1); Sodium Level 134 mmol/L (136-145)
[2023-03-12 13:24] LABS: Bacteria 0 SEEN /hpf (None Seen); Mucous, Urine 0 SEEN /hpf (<or=2+)
[2023-03-12 13:31] LABS: Color, Urine Yellow (Yellow); Glucose, Dipstick Normal (Normal); Ketone-Dipstick 50 mg/dl (Negative); Leukocyte Esterase-Dipstick 25 /ul (Negative); Nitrite-Dipstick Negative (Negative); Occult Blood-Urine 25 /ul (Negative); Protein-Dipstick 30 mg/dl (Negative); Urine Clarity Clear (Clear); Urine Urobilinogen 4 mg/dl (Normal)
[2023-03-12 13:37] LABS: Urine Bilirubin Dipstick 1 mg/dL (Negative)
[2023-03-12 13:40] LABS: Red Blood Cells-Urine 0-5 SEEN /hpf (0-5); Squamous Epithelial Cells - UA 0-5 SEEN /hpf (0-5); White Blood Cells 0-5 SEEN /hpf (0-5)
--- NOTE | 2023-03-12 14:08 | EDS_ITS ---
HPI HPI - GI History of Present Illness Chief Complaint: Abd Pain Informant: patient Narrative Narrative: 52-year-old male with a history of chronic back pain, prior hernia repair and cholecystectomy presenting with worsening left lower quadrant abdominal pain. He states it started Sunday night. He notes it is sharp and waxes and wanes in intensity. It is better when he lays still put a heating pad on the area. Worse when he sits up or moves. Does have a physical job and does a lot of twisting. Denies any urinary symptoms. Denies any change in his bowel habits. Denies any back pain acutely. Notes he does feel little bit better when he has a bowel movement. Had a colonoscopy 2 years ago at [facility] does not remember the name of the surgeon. Does have some pain pills at home from prior foot surgery but he states is not helping with the pain. Did not take anything today for symptoms. No other complaints or concerns at this time. [facility] Medical History (Updated 03/12/23 @ 14:[address] Sandra Redmond, DO) Asthma COPD (chronic obstructive pulmonary disease) GERD (gastroesophageal reflux disease) Hypertension PTSD (post-traumatic stress disorder) Home Medications amitriptyline 10 mg tablet 20 mg PO QHS 10/02/15 [History Last Taken Unknown] mometasone 220 mcg/actuation(14 doses) breath activated powder inhaler (Asmanex Twisthaler) 220 mcg IH QHS PRN Sob &/Or Wheezing 10/02/15 [History Last Taken Unknown] omeprazole 20 mg capsule,delayed release 20 mg PO BID 10/02/15 [History Last Taken Unknown] prazosin 2 mg capsule (Minipress) 4 mg PO QHS 10/02/15 [History Last Taken Unknown] sertraline 100 mg tablet 100 mg PO DAILY 10/02/15 [History Last Taken Unknown] ondansetron 4 mg disintegrating tablet 4 mg PO Q8H PRN PRN Nausea #10 tabs 10/26/16 [Rx Last Taken Unknown] naproxen 500 mg tablet 500 mg PO BID PRN PRN Pain 10 days #20 tabs 07/13/17 [Rx Last Taken Unknown] ondansetron 4 mg disintegrating tablet 4 mg PO Q8H PRN PRN Nausea #10 tabs 07/29/20 [Rx Last Taken Unknown] clindamycin HCl 300 mg capsule (Cleocin HCl) 300 mg PO Q6H #40 CAPSULES 02/14/23 [Rx Last Taken Unknown] hydrocodone-acetaminophen 5-325mg 5mg-325mg 1 tab PO Q6H PRN PRN Pain 3 days #10 TABLETS 02/14/23 [Rx Last Taken Unknown] cefdinir 300 mg capsule 300 mg PO BID #14 caps 03/12/23 [Rx Last Taken Unknown] metronidazole 500 mg tablet 500 mg PO Q8H 7 days #21 tabs 03/12/23 [Rx Last Taken Unknown] ondansetron HCl 4 mg tablet 4 mg PO Q8H PRN nausea and vomiting #14 tabs 03/12/23 [Rx Last Taken Unknown] oxycodone 5 mg tablet 5 mg PO Q6H PRN pain 3 days #12 tabs 03/12/23 [Rx Last Taken Unknown] Allergy/AdvReac Type Severity Reaction Status Date / Time bee venom protein (honey bee) Allergy NEEDS Verified 03/12/23 09:27 FOLLOW-UP latex Allergy Other Verified 03/12/23 09:27 meloxicam Allergy Itching Verified 03/12/23 09:27 onion Allergy NEEDS Verified 03/12/23 09:27 FOLLOW-UP Penicillins Allergy Swelling Verified 03/12/23 09:27 spider venom Allergy Hives Verified 03/12/23 09:27 clindamycin AdvReac Vomiting Verified 03/12/23 09:28 morphine AdvReac Vomiting Verified 03/12/23 09:27 Surgical History History of bunionectomy Social History Smoking Status: Current every day smoker tobacco type: cigarettes ROS ROS ED Constitutional Constitutional ED: Denies chills or fever(s) Cardiovascular Cardiovascular: Denies chest pain Respiratory/Chest Respiratory/Chest: Denies cough Gastrointestinal Gastrointestinal: Reports abdominal pain; Denies constipation, diarrhea, nausea or vomiting Genitourinary Genitourinary ED: Denies dysuria or hematuria Musculoskeletal Musculoskeletal: Denies arthralgias, back pain or myalgias Integumentary Denies rash Neurologic Neurologic: Denies headache(s) or weakness Hematologic/Lymphatic Hematologic/Lymphatic: Denies easy bleeding or easy bruising EXAM Physical Exam Const Vital Signs: 03/12/23 09:25 Temperature 97.6 F L Temperature Source Temporal Pulse Rate 109 H Respiratory Rate 16 Blood Pressure 146/84 H Blood Pressure Mean 104 Pulse Ox 99 Oxygen Delivery Method Room Air Positive well nourished and well developed General Appearance ED: well developed and NAD HEENT Reports moist mucous membranes normocephalic and atraumatic Neck supple Resp normal respiratory effort and clear to auscultation bilaterally Cardio regular rate, regular rhythm and no murmurs GI non-distended Auscultation: hypoactive bowel sounds Palpation: soft and tender LLQ; Negative for guarding, rigid, hernia or mass Back/Spine no CVA tenderness Extremity full ROM General Extremety ED: Negative for edema or tenderness General Extremity: Negative for edema Neuro moves all extremities and no sensory deficits noted Sensorium / Orientation: alert, oriented to person, oriented to place and oriented to time Psych mental status grossly normal and thought process normal Skin no wounds Rashes: no rashes MDM MDM MDM Narrative Medical decision making narrative: Is evaluated for 2 days of worsening left lower quadrant abdominal pain. He is quite tender on exam. Denies any systemic symptoms. His vital signs are significant for mild tachycardia with a heart rate of 109. Patient states he gets tachycardic sometime however he is not usually tachycardic on previous ER visits. He drove here so was only given Toradol for pain control as I do not want him to receive sedating medication and then have to drive home. Is a mild improvement with Toradol. His lab work is remarkable for leukocytosis of 14.1. BMP largely normal and his urinalysis does show some inflammatory changes but not consistent with UTI. CT shows thickening and inflammatory changes of the sigmoid colon consistent with acute diverticulitis. This is consistent with his presentation. Patient be started on Omnicef and Flagyl for treatment. Is given a prescription for oxycodone for pain control as well as some nausea medicine as he seems to have a lot of GI intolerance with medications. He verbalizes agreement understand this plan. Is given outpatient referral for surgery and return precautions to the ER. Given a work note for today and tomorrow. Discharged home in stable condition. Time he is tolerating p.o., is afebrile, is lacking systemic symptoms and does not have any signs of microperforation or abscess I do not think requires admission for IV antibiotics. Lab Data Labs: Laboratory Results - last 24 hr 03/12/23 03/12/23 09:40 13:15 WBC 14.1 H RBC 5.08 Hgb 15.0 Hct 43.3 MCV 85.2 MCH 29.5 MCHC 34.6 RDW Std Deviation 41.8 RDW Coeff of Pamela 13.4 Plt Count 255 MPV 9.3 Immature Gran % (Auto) 0.200 Neut % (Auto) 75.9 H Lymph % (Auto) 13.8 L [place] % (Auto) 9.1 Eos % (Auto) 0.8 Baso % (Auto) 0.2 Absolute Neuts (auto) 10.7 H Absolute Lymphs (auto) 1.94 Nucleated RBC % 0 Sodium 134 L Potassium 3.6 Chloride 103 Carbon Dioxide 25.0 Anion Gap 6 BUN 7 Creatinine 0.86 Estim Creat Clear Calc 92.87 Est GFR (MDRD) Af Amer 119 Est GFR (MDRD) Non-Af 98 BUN/Creatinine Ratio 8.1 L Glucose 108 H Calcium 8.9 Urine Color Yellow Urine Clarity Clear Urine pH 6.0 Ur Specific [place] 1.020 Urine Protein 30 H Urine Glucose (UA) Normal Urine Ketones 50 H Urine Occult Blood 25 H Urine Nitrite Negative Urine Bilirubin 1 H Urine Urobilinogen 4 H Ur Leukocyte Esterase 25 H Urine RBC 0-5 SEEN Urine WBC 0-5 SEEN Ur Squamous Epith Cells 0-5 SEEN Urine Bacteria 0 SEEN Urine Mucus 0 SEEN Radiography Diagnostic Testing: Clinical Impression(s) from Imaging Studies Abdomen/Pelvis CT 03/12/23 11:05 IMPRESSION: 1. Thickening and inflammatory changes of the sigmoid colon consistent with acute diverticulitis. 2. Status post cholecystectomy. 3. Stable left adrenal adenoma. 4. Small umbilical hernia containing fat. Electronically Signed: Mahesh Huffman MD at 12:35 EDT , Discharge Plan Triage Chief Complaint: Abd Pain ED Provider: Sandra Redmond Dx/Rx/DC Orders Clinical Impression: Leukocytosis, Sigmoid diverticulitis Instructions: ED Diverticulitis, ED Full Liquid Diet Prescriptions: New cefdinir 300 mg capsule 300 mg PO BID Qty: 14 0RF metronidazole 500 mg tablet 500 mg PO Q8H 7 Days Qty: 21 0RF oxycodone 5 mg tablet 5 mg PO Q6H PRN (Reason: pain) 3 Days Qty: 12 0RF ondansetron HCl 4 mg tablet 4 mg PO Q8H PRN (Reason: nausea and vomiting) Qty: 14 0RF No Action sertraline 100 MG tablet 100 mg PO DAILY amitriptyline 10 MG tablet 20 mg PO QHS omeprazole 20 MG capsule 20 mg PO BID prazosin [Minipress] 2 MG capsule 4 mg PO QHS Asmanex Twisthaler 220 MCG aerosol powdr breath activated 220 mcg IH QHS PRN (Reason: Sob &/Or Wheezing) ondansetron 4 MG tablet 4 mg PO Q8H PRN PRN (Reason: Nausea) Qty: 10 0RF naproxen 500 MG tablet 500 mg PO BID PRN PRN (Reason: Pain) 10 Days Qty: 20 0RF ondansetron 4 MG tablet 4 mg PO Q8H PRN PRN (Reason: Nausea) Qty: 10 0RF clindamycin HCl [Cleocin HCl] 300 mg capsule 300 mg PO Q6H Qty: 40 0RF hydrocodone-acetaminophen [hydrocodone-acetaminophen] 5-325 mg tablet 1 tab PO Q6H PRN PRN (Reason: Pain) 3 Days Qty: 10 0RF Stand Alone Forms: ED Work / School Excuse [facility] Care Provider: [facility] Referrals: Major Parker MD [Med Staff - Active Staff] - 3-5 Days if not improving [facility] [Primary Care Provider] - Activity Restrictions/Additional Instructions: All antibiotics as prescribed. He was also prescribed as needed pain and nausea medicine. You may also take ibuprofen or naproxen [id number] for breakthrough pain. Try to stick to a liquid diet for 24 to 48 hours. If you develop fever or worsening pain especially after 48 hours please return to the emergency room. Disposition Disposition: Home, Self Care
[2023-03-12] MEDS: metroNIDAZOLE 500 MG Tablet PO (14:17)
[2023-03-12] MEDS: Cefdinir 300 MG Capsule PO (14:17)
[2023-03-12 14:24] VITALS: BP 124/69; PULSE 72; RESP 15; O2SAT 98
== END 2023-03-12 14:30 | disposition home or self-care (01) ==
PROVIDERS: Emergency Provider Emergency Medicine; Visit Provider Emergency Medicine
DX: D72.829 Elevated white blood cell count, unspecified (principal); K57.32 Diverticulitis of large intestine without perforation or abscess without bleeding; M54.9 Dorsalgia, unspecified; G89.29 Other chronic pain; F17.210 Nicotine dependence, cigarettes, uncomplicated
CPT/HCPCS: 74177; 80048; 81001; 85025; 96374; 99284; J7030; Q9967; A4216

== ENCOUNTER 2023-04-23 08:29 | Emergency (ER) | payer OTHER, SELFPAY ==
[2023-04-23 08:29] VITALS: BP 141/98; PULSE 75; RESP 19; O2SAT 96
[2023-04-23 08:30] VITALS: BP 159/93; PULSE 67; RESP 18; TEMP 36.3; O2SAT 97; BMI 27.3
--- NOTE | 2023-04-23 08:46 | EKG12_ITS ---
Test Reason : CP Blood Pressure : / mmHG Vent. Rate : 075 BPM Atrial Rate : 075 BPM P-R Int : 158 ms QRS Dur : 072 ms QT Int : 348 ms P-R-T Axes : 045 070 037 degrees QTc Int : 388 ms Normal sinus rhythm Normal ECG Confirmed by WADE DUNLAP MD ([id number]), television news video editor GILMA ROACH ([id number]) on 05/01/2023 2:16:40 PM Referred By: JAY JAY Confirmed By:WADE DUNLAP MD
--- NOTE | 2023-04-23 08:47 | ED.VIS.CHEST ---
HPI History of Present Illness Chief Complaint: Chest Pain Informant: patient Narrative Narrative: 52-year-old presenting with 4-5 days of substernal nonradiating nonpleuritic chest aching, and increased shortness of breath, which has resulted in him using his albuterol rescue nebulizer more often which is helping temporarily and partially. He is on maintenance inhalers for chronic bronchitis/asthma, he states he served in [employer] in the [employer], but he also has averaged 2 packs a day smoking since he was age 10 although he recently has cut down to half pack of lites per day and trying to quit. Denies any history of heart problems. No recent fevers or chills. No major coughing, just occasionally in the mornings, no hemoptysis. No leg swelling or pains. No history of DVT or PE or recent immobilization or long travel. [facility] Medical History Asthma COPD (chronic obstructive pulmonary disease) GERD (gastroesophageal reflux disease) Hypertension PTSD (post-traumatic stress disorder) Home Medications amitriptyline 10 mg tablet 20 mg PO QHS 10/02/15 [History Last Taken 04/22/23] mometasone 220 mcg/actuation(14 doses) breath activated powder inhaler (Asmanex Twisthaler) 220 mcg IH QHS PRN Sob &/Or Wheezing 10/02/15 [History Last Taken 04/23/23] omeprazole 20 mg capsule,delayed release 20 mg PO BID 10/02/15 [History Last Taken 04/22/23] prazosin 2 mg capsule (Minipress) 4 mg PO QHS 10/02/15 [History Last Taken 04/22/23] sertraline 100 mg tablet 100 mg PO DAILY 10/02/15 [History Last Taken 04/22/23] ondansetron 4 mg disintegrating tablet 4 mg PO Q8H PRN PRN Nausea #10 tabs 10/26/16 [Rx Last Taken Unknown] naproxen 500 mg tablet 500 mg PO BID PRN PRN Pain 10 days #20 tabs 07/13/17 [Rx Last Taken Unknown] clindamycin HCl 300 mg capsule (Cleocin HCl) 300 mg PO Q6H #40 CAPSULES 02/14/23 [Rx Last Taken Unknown] prednisone 10 mg tablet 10 mg PO UD #33 tabs 04/23/23 [Rx Last Taken Unknown] Allergy/AdvReac Type Severity Reaction Status Date / Time bee venom protein (honey bee) Allergy NEEDS Verified 04/23/23 08:30 FOLLOW-UP latex Allergy Other Verified 04/23/23 08:30 meloxicam Allergy Itching Verified 04/23/23 08:30 onion Allergy NEEDS Verified 04/23/23 08:30 FOLLOW-UP Penicillins Allergy Swelling Verified 04/23/23 08:30 spider venom Allergy Hives Verified 04/23/23 08:30 clindamycin AdvReac Vomiting Verified 04/23/23 08:30 morphine AdvReac Vomiting Verified 04/23/23 08:30 Surgical History History of bunionectomy Social History Smoking Status: Current every day smoker tobacco type: cigarettes ROS ROS ED Constitutional Constitutional ED: Denies chills or fever(s) Eyes Eyes: Denies change in vision or diplopia ENT ENT ED: Denies rhinorrhea or sore throat Cardiovascular Cardiovascular: Reports chest pain; Denies orthopnea or palpitations Respiratory/Chest Respiratory/Chest: Reports dyspnea; Denies cough or orthopnea Gastrointestinal Gastrointestinal: Denies abdominal pain, diarrhea, nausea or vomiting Genitourinary Genitourinary ED: Denies dysuria or hematuria Musculoskeletal Musculoskeletal: Denies back pain or neck pain Integumentary Denies abscess or rash Neurologic Neurologic: Denies headache(s), paresthesias or weakness Psychiatric Psychiatric: Denies anxiety or suicidal thoughts EXAM Physical Exam Const Vital Signs: 04/23/23 08:30 04/23/23 08:29 04/23/23 08:29 Temperature 97.4 F L Temperature Source Temporal Pulse Rate 67 75 Respiratory Rate 18 19 H Respiratory Effort Short of Breath Labored Respiratory Pattern Normal Blood Pressure 159/93 H 141/98 H Blood Pressure Mean 115 112 Pulse Ox 97 96 Oxygen Delivery Method Room Air Room Air 04/23/23 08:57 Temperature Temperature Source Pulse Rate 68 Respiratory Rate 14 Respiratory Effort Respiratory Pattern Normal Blood Pressure Blood Pressure Mean Pulse Ox Oxygen Delivery Method Positive well nourished and well developed General Appearance ED: well developed and NAD HEENT Reports moist mucous membranes normocephalic and atraumatic Eyes PERRL and EOMs intact bilaterally Neck full ROM, supple and no JVD Resp normal respiratory effort, normal air movement, no use of accessory muscles and clear to auscultation bilaterally Effort and Inspection: able to speak in complete sentences Cardio regular rate, regular rhythm and no murmurs GI non-tender and non-distended Auscultation: normoactive bowel sounds Palpation: soft Back/Spine no CVA tenderness General Back: other FROM Extremity normal to inspection General Extremety ED: Negative for edema, pulses abnormal or tenderness General Extremity: Negative for edema or pulses abnormal Neuro oriented x3, CN's II-XII intact bilaterally and no sensory deficits noted Sensorium / Orientation: awake and alert Motor Exam: strength 5/5 throughout Psych mental status grossly normal Skin no rashes or lesions noted and no wounds Heart Score History: Slightly/Non-Suspicious ECG: Normal Age: >45 - <65 years Risk Factors: 1 or 2 Risk Factors Troponin: </= Normal Limit Score: 2 MDM MDM MDM Narrative Medical decision making narrative: Patient's history is more consistent with asthma/chronic bronchitis issues rather than cardiac. Given his age and risk, work-up performed including EKG and troponin both of which are normal with for 5 days of constant discomfort, essentially ruling out acute coronary syndrome. I do not think he needs to be worked up for pulmonary embolus right now. His vital signs are essentially normal except for some mild hypertension, arguing against this as well although was considered. He does not have pneumonia or pneumothorax in the chest x-ray on my interpretation. He feels a little better after a duo nebulizer treatment, consistent with this being related to his COPD. Will give him prednisone and a work note for today and advised close outpatient follow-up. Lab Data Attestation: I reviewed the patient's lab results. Labs: Laboratory Results - last 24 hr 04/23/23 08:41 WBC 6.4 RBC 5.17 Hgb 14.8 Hct 43.6 MCV 84.3 MCH 28.6 MCHC 33.9 RDW Std Deviation 42.7 RDW Coeff of Pamela 13.8 Plt Count 235 MPV 8.6 Immature Gran % (Auto) 0.300 Neut % (Auto) 54.7 Lymph % (Auto) 37.1 [place] % (Auto) 6.0 Eos % (Auto) 1.1 Baso % (Auto) 0.8 Absolute Neuts (auto) 3.5 Absolute Lymphs (auto) 2.37 Nucleated RBC % 0 Sodium 139 Potassium 3.6 Chloride 104 Carbon Dioxide 24.0 Anion Gap 11 BUN 9 Creatinine 0.99 Estim Creat Clear Calc 83.48 Est GFR (MDRD) Af Amer 101 Est GFR (MDRD) Non-Af 83 BUN/Creatinine Ratio 9.1 L Glucose 119 H Calcium 9.1 Troponin I High Sens 8 Radiography Chest X-Ray - ED: 2 View, Read by ED Physician, No Acute Disease and No Infiltrates Diagnostic Testing: Clinical Impression(s) from Imaging Studies Chest X-Ray 04/23/23 09:00 IMPRESSION: No acute abnormality is seen. Electronically Signed: Yaakov Pal MD at 9:30 EST , Rhythm Strip Rhythm Strip: Sinus Rhythm Rate: 75 Ectopy: None EKG Initial EKG: Attestation: I personally reviewed and interpreted this EKG as follows: Interpretation: Sinus Rhythm and No Acute Injury Pattern Comments: Normal EKG Discharge Plan Triage Chief Complaint: Chest Pain ED Provider: Gregory Cordero Dx/Rx/DC Orders Clinical Impression: Acute exacerbation of chronic obstructive pulmonary disease (COPD), Chest pain, unspecified Instructions: ED COPD Flare Prescriptions: New prednisone 10 mg tablet 10 mg PO UD Qty: 33 0RF Rx Instructions: Take 4 tablets daily for 3 days, then 3 daily for 3 days, then 2 daily for 3 days, then 1 a day for 3 days then 1 QOD for 3 doses. No Action sertraline 100 MG tablet 100 mg PO DAILY amitriptyline 10 MG tablet 20 mg PO QHS omeprazole 20 MG capsule 20 mg PO BID prazosin [Minipress] 2 MG capsule 4 mg PO QHS Asmanex Twisthaler 220 MCG aerosol powdr breath activated 220 mcg IH QHS PRN (Reason: Sob &/Or Wheezing) ondansetron 4 MG tablet 4 mg PO Q8H PRN PRN (Reason: Nausea) Qty: 10 0RF naproxen 500 MG tablet 500 mg PO BID PRN PRN (Reason: Pain) 10 Days Qty: 20 0RF clindamycin HCl [Cleocin HCl] 300 mg capsule 300 mg PO Q6H Qty: 40 0RF Stand Alone Forms: Work / School Excuse Primary Care Provider: [facility] Referrals: [facility] [Primary Care Provider] - 3-5 Days if not improving Activity Restrictions/Additional Instructions: You received a dose of steroids in the IV in the ER so the prescription can be started tomorrow 04/24/2023 Disposition Disposition: Home, Self Care
[2023-04-23 08:55] LABS: Absolute Lymphocyte Count 2.37 X10^3/uL (0.83-4.51); Absolute Neutrophil Count 3.5 X10^3/uL (2.0-7.7); Basophil# 0.05 X10^3/uL; Basophil% 0.8 % (0-1); Eosinophil# 0.07 X10^3/uL; Eosinophils% 1.1 % (0-5); Hematocrit 43.6 % (40-54); Hemoglobin 14.8 g/dL (13.0-16.5); Lymphocyte # 2.37 X10^3/ul (0.83-4.51); Lymphocyte % 37.1 % (19-41); Mean Corp Hgb Conc 33.9 g/dL (32-36); Mean Corpuscular Hgb 28.6 pg (27.0-32.0); Mean Corpuscular Volume 84.3 fL (80-94); Mean Platelet Vol. 8.6 fl (6.2-12.0); Monocyte# 0.38 X10^3/uL; NRBC Flagged by Analyzer 0 % (0-5); Neutrophil # 3.49 X10^3/uL (2.7-7.7); Neutrophil % 54.7 % (47-70); Platelet Count 235 K/mm3 (150-450); RBC Distribution Width CV 13.8 % (11.6-14.6); RBC Distribution Width SD 42.7 fl (35.1-43.9); Red Blood Count 5.17 M/mm3 (4.6-6.2); White Blood Count 6.4 K/mm3 (4.4-11.0)
[2023-04-23 08:57] VITALS: PULSE 68; RESP 14
[2023-04-23] MEDS: Ipratropium/Albuterol Sulfate 3 ML AMPUL.NEB INHALATION (08:57)
--- NOTE | 2023-04-23 09:00 | RAD_ITS ---
STUDY: X-RAY CHEST REASON FOR EXAM: Male, 52 years old. cp sob TECHNIQUE: PA and lateral views of the chest. COMPARISON: Comparison is made with prior study of September 20, 2022. FINDINGS: EKG electrodes are seen. The lungs are clear and expanded. There is no demonstrated pleural abnormality. Normal size heart. Normal mediastinum and ben. Normal visualized pulmonary arteries. Normal visualized aortic arch and descending thoracic aorta. There are mild degenerative changes of the visualized thoracic spine. Normal visualized ribs, clavicles, and shoulders. Prior cholecystectomy. RAD/Chest PA and Lateral IMPRESSION: No acute abnormality is seen. Electronically Signed: Yaakov Pal MD at 9:30 [facility] ,
[2023-04-23 09:12] LABS: Anion Gap 11 (5-15); BUN 9 mg/dL (7-18); BUN/Creat Ratio 9.1 RATIO (10-20); Calcium,Total 9.1 mg/dL (8.5-10.1); Chloride 104 mmol/L (98-107); Creatinine, Serum 0.99 mg/dL (0.70-1.30); EST Glomerular Filtration Rate 83 mL/min (>60); Est Glom Filt Rate - Afr Amer 101 mL/min (>60); Estimated Creatinine Clearance 83.48 ml/min; Glucose 119 mg/dL (74-106); Potassium 3.6 mmol/L (3.5-5.1); Sodium Level 139 mmol/L (136-145); Troponin-I HS 8 pg/mL (3.0-78.0)
[2023-04-23] MEDS: MethylPREDNISolone 125 MG/2 ML Vial IV (09:43)
[2023-04-23 09:45] VITALS: BP 147/92; PULSE 69; PULSE 72; RESP 14; O2SAT 99
== END 2023-04-23 09:46 | disposition home or self-care (01) ==
PROVIDERS: Emergency Provider Emergency Medicine; Visit Provider Emergency Medicine
DX: J44.1 Chronic obstructive pulmonary disease with (acute) exacerbation (principal); R07.9 Chest pain, unspecified; I10 Essential (primary) hypertension; K21.9 Gastro-esophageal reflux disease without esophagitis; F17.210 Nicotine dependence, cigarettes, uncomplicated; Z79.899 Other long term (current) drug therapy
CPT/HCPCS: 71046; 80048; 84484; 85025; 93005; 94640; 96374; 99284